=== PATIENT | female | born 1995 | race Caucasian/White ===

== ENCOUNTER → 2018-06-16 09:42 | Outpatient (CLI) | payer OTHER, SELFPAY ==
[2018-06-19 11:16] LABS: Mumps Antibody,IgG > 300.0 AU/mL (Immune >10.9); Rubeola IgG Ab < 25.0 AU/mL (Immune >29.9); V-Zoster IgG (Immunity) < 135 index (Immune >165)
== END ==
PROVIDERS: Visit Provider Family Medicine
DX: Z91.89 Other specified personal risk factors, not elsewhere classified (principal); Z00.00 Encounter for general adult medical examination without abnormal findings
CPT/HCPCS: 36415; 86735; 86762; 86765; 86787

== ENCOUNTER → 2019-06-12 15:25 | Outpatient (CLI) | payer OTHER, SELFPAY ==
[2019-06-12 15:18] VITALS: BMI 28.5
[2019-06-12 15:45] LABS: Absolute Lymphocyte Count 2.34 X10^3/uL (0.83-4.51); Absolute Neutrophil Count 7.3 X10^3/uL (2.0-7.7); Basophil# 0.03 X10^3/uL; Basophil% 0.3 % (0-1); Eosinophil# 0.06 X10^3/uL; Eosinophils% 0.6 % (0-5); Hematocrit 37.3 % (37-47); Hemoglobin 13.1 g/dL (12.0-15.0); Lymphocyte # 2.34 X10^3/ul (4.0); Lymphocyte % 22.2 % (19-41); Mean Corp Hgb Conc 35.1 g/dL (32-36); Mean Corpuscular Volume 88.2 fL (81-99); Mean Platelet Vol. 10.3 fl (6.2-12.0); Monocyte# 0.81 X10^3/uL; Monocyte% 7.7 % (0-10); NRBC Flagged by Analyzer 0 % (0-5); Neutrophil # 7.25 X10^3/uL (2.7-7.7); Neutrophil % 68.8 % (47-70); Platelet Count 250 K/mm3 (150-450); RBC Distribution Width CV 12.8 % (11.6-14.6); RBC Distribution Width SD 41.3 fl (35.1-43.9); Red Blood Count 4.23 M/mm3 (4.2-5.4); White Blood Count 10.5 K/mm3 (4.4-11.0)
[2019-06-12 17:09] LABS: HIV - WCH Non-Reactive (Nonreactive); Rubella IgG > 500.0 IU/mL
[2019-06-12 20:17] LABS: Chlamydia Trachomatis by PCR Negative (Negative); Neisserai gonorrhoeae by PCR Negative (Negative); Probe Check PASS; Sample Adequacy Control PASS; Specimen Processing Control PASS
[2019-06-14 16:07] LABS: Hemoglobin Fraction A 97.5 % (96.4-98.8); Hemoglobin Fraction A2 2.5 % (1.8-3.2); Hemoglobin Fraction C 0 % (0.0); Hemoglobin Fraction F 0 % (0.0-2.0); Hemoglobin Fraction S 0 % (0.0); Hemoglobin Solubility,Panel Negative (Negative)
[2019-06-15 00:54] LABS: Rapid Plasmin Reagin (RPR) NONREACTIVE (NONREACTIVE)
[2019-06-15 14:33] LABS: HPV Reflexed? NOT INDICATED
== END ==
PROVIDERS: Family Provider Family Medicine; PCP Family Medicine; Referring Provider Obstetrics & Gynecology; Visit Provider Obstetrics & Gynecology
DX: O99.119 Other diseases of the blood and blood-forming organs and certain disorders involving the immune mechanism complicating pregnancy, unspecified trimester (principal); D56.3 Thalassemia minor; Z3A.00 Weeks of gestation of pregnancy not specified; Z12.4 Encounter for screening for malignant neoplasm of cervix
CPT/HCPCS: 36415; 83021; 85025; 85660; 86592; 86703; 86762; 86850; 86900; 86901; 87086; 87088; 87491; 87591; 87624; 88175; G0145

== ENCOUNTER → 2019-06-25 15:28 | Outpatient (CLI) | payer OTHER, SELFPAY ==
[2019-06-20 16:00] VITALS: BMI 25.0
== END ==
PROVIDERS: Family Provider Family Medicine; PCP Family Medicine; Referring Provider Obstetrics & Gynecology; Visit Provider Obstetrics & Gynecology
DX: Z34.81 Encounter for supervision of other normal pregnancy, first trimester (principal)

== ENCOUNTER → 2019-08-07 09:53 | Outpatient (CLI) | payer OTHER, SELFPAY ==
[2019-08-07 09:42] VITALS: BMI 27.7
[2019-08-07 10:24] LABS: Absolute Lymphocyte Count 1.43 X10^3/uL (0.83-4.51); Absolute Neutrophil Count 7.6 X10^3/uL (2.0-7.7); Basophil# 0.02 X10^3/uL; Basophil% 0.2 % (0-1); Hematocrit 35.5 % (37-47); Hemoglobin 12.2 g/dL (12.0-15.0); Lymphocyte # 1.43 X10^3/ul (4.0); Lymphocyte % 14.5 % (19-41); Mean Corp Hgb Conc 34.4 g/dL (32-36); Mean Corpuscular Hgb 30.7 pg (27.0-32.0); Mean Corpuscular Volume 89.2 fL (81-99); Mean Platelet Vol. 10.5 fl (6.2-12.0); Monocyte# 0.75 X10^3/uL; Monocyte% 7.6 % (0-10); NRBC Flagged by Analyzer 0 % (0-5); Neutrophil # 7.55 X10^3/uL (2.7-7.7); Neutrophil % 76.3 % (47-70); Platelet Count 206 K/mm3 (150-450); RBC Distribution Width CV 13.1 % (11.6-14.6); RBC Distribution Width SD 42.9 fl (35.1-43.9); Red Blood Count 3.98 M/mm3 (4.2-5.4); White Blood Count 9.9 K/mm3 (4.4-11.0)
[2019-08-07 10:41] LABS: ALB/GLOB Ratio 0.9 RATIO (0.9-2.4); AST(SGOT) 11 U/L (15-37); Alanine Aminotransfer ALT/SGPT 16 U/L (13-56); Albumin, Serum 3.1 g/dL (3.2-5.0); Alkaline Phosphatase 55 U/L (45-117); Anion Gap 6 (5-15); BUN 5 mg/dL (7-18); BUN/Creat Ratio 8.8 RATIO (10-20); Chloride 108 mmol/L (98-107); Creatinine, Serum 0.57 mg/dL (0.55-1.02); EST Glomerular Filtration Rate 139 mL/min (>60); Est Glom Filt Rate - Afr Amer 169 mL/min (>60); Globulin 3.6 g/dL (2.2-4.2); Glucose 76 mg/dL (74-106); Potassium 3.6 mmol/L (3.5-5.1); Protein, Total 6.7 g/dL (6.4-8.2); Sodium Level 138 mmol/L (136-145)
[2019-08-07 11:13] LABS: Creatinine, Urine (random) < 13.00 mg/dL (NO RANGE EST.); Protein, Urine (Random) < 6.0 mg/dL (<11.9)
== END ==
PROVIDERS: Family Provider Family Medicine; PCP Family Medicine; Referring Provider Nurse Practitioner Women's Health; Visit Provider Nurse Practitioner Women's Health
DX: O12.12 Gestational proteinuria, second trimester (principal); Z3A.00 Weeks of gestation of pregnancy not specified
CPT/HCPCS: 36415; 80053; 82570; 84156; 85025

== ENCOUNTER → 2019-10-26 12:09 | Outpatient (CLI) | payer OTHER, SELFPAY ==
[2019-10-05 14:56] VITALS: BMI 27.7
[2019-10-26 13:07] LABS: Absolute Lymphocyte Count 1.72 X10^3/uL (0.83-4.51); Absolute Neutrophil Count 7.8 X10^3/uL (2.0-7.7); Basophil# 0.03 X10^3/uL; Basophil% 0.3 % (0-1); Hematocrit 33.9 % (37-47); Hemoglobin 11.2 g/dL (12.0-15.0); Lymphocyte # 1.72 X10^3/ul (4.0); Lymphocyte % 16.5 % (19-41); Mean Corpuscular Hgb 29.8 pg (27.0-32.0); Mean Corpuscular Volume 90.2 fL (81-99); Mean Platelet Vol. 11.4 fl (6.2-12.0); Monocyte# 0.71 X10^3/uL; Monocyte% 6.8 % (0-10); NRBC Flagged by Analyzer 0 % (0-5); Neutrophil % 74.9 % (47-70); Platelet Count 216 K/mm3 (150-450); RBC Distribution Width CV 12.8 % (11.6-14.6); RBC Distribution Width SD 42.3 fl (35.1-43.9); Red Blood Count 3.76 M/mm3 (4.2-5.4); White Blood Count 10.4 K/mm3 (4.4-11.0)
[2019-10-26 13:31] LABS: Glucose Challenge Gest 1H 50g 106 mg/dL (70-140)
== END ==
PROVIDERS: Family Provider Family Medicine; PCP Family Medicine; Referring Provider Nurse Practitioner Women's Health; Visit Provider Nurse Practitioner Women's Health
DX: Z34.90 Encounter for supervision of normal pregnancy, unspecified, unspecified trimester (principal)
CPT/HCPCS: 36415; 82950; 85025

== ENCOUNTER → 2019-10-30 15:22 | Outpatient (CLI) | payer OTHER, SELFPAY ==
[2019-10-05 14:56] VITALS: BMI 27.7
[2019-11-02 09:51] LABS: V-Zoster IgG (Immunity) < 135 index (Immune >165)
== END ==
LOC: LABSPEC 15:23 → LAB 16:46
PROVIDERS: Family Provider Family Medicine; PCP Family Medicine; Referring Provider Nurse Practitioner Women's Health; Visit Provider Nurse Practitioner Women's Health
DX: Z20.820 Contact with and (suspected) exposure to varicella (principal)
CPT/HCPCS: 36415; 86787

== ENCOUNTER → 2019-11-23 | Outpatient (CLI) | payer OTHER, SELFPAY ==
[2019-11-23 12:09] VITALS: BMI 27.7
== END | disposition home or self-care (01) ==
LOC: LABSPEC 13:40
PROVIDERS: PCP Family Medicine; Referring Provider Obstetrics & Gynecology; Visit Provider Obstetrics & Gynecology
DX: D56.3 Thalassemia minor (principal)
CPT/HCPCS: 87086; 87088

== ENCOUNTER → 2019-11-27 12:24 | Outpatient (CLI) | payer OTHER, SELFPAY ==
[2019-11-23 12:09] VITALS: BMI 27.7
[2019-11-27 14:29] LABS: Hepatitis B Surface Antigen Non-Reactive (Nonreactive)
== END ==
PROVIDERS: PCP Family Medicine; Referring Provider Nurse Practitioner Women's Health; Visit Provider Nurse Practitioner Women's Health
DX: Z34.90 Encounter for supervision of normal pregnancy, unspecified, unspecified trimester (principal)
CPT/HCPCS: 36415; 87340

== ENCOUNTER → 2019-12-28 | Outpatient (CLI) | payer OTHER, SELFPAY ==
[2019-12-28 11:09] VITALS: BMI 27.7
== END | disposition home or self-care (01) ==
LOC: LABSPEC 17:54
PROVIDERS: PCP Family Medicine; Visit Provider Obstetrics & Gynecology
DX: Z34.93 Encounter for supervision of normal pregnancy, unspecified, third trimester (principal)
CPT/HCPCS: 87081

== ENCOUNTER 2020-01-14 11:50 | Inpatient (IN) | payer OTHER, SELFPAY ==
[2019-12-07 11:37] VITALS: BMI 27.7
[2020-01-11 10:54] VITALS: BMI 27.7
[2020-01-14] VITALS (48 sets, daily range): BP systolic 115–137; BP diastolic 57–75; PULSE 66–102; TEMP 36.9–37.5; O2SAT 88–100; BMI 31.8
[2020-01-14 11:47] LABS: ROM Internal Control Test YES-OK TO RESULT pt. (Internal QC)
[2020-01-14 11:48] LABS: ROM Patient Test POSITIVE (Negative)
[2020-01-14] MEDS: Lactated Ringers 1,000 ML 50 ML IV (12:15)
[2020-01-14 12:42] LABS: Absolute Lymphocyte Count 1.83 X10^3/uL (0.83-4.51); Absolute Neutrophil Count 7.3 X10^3/uL (2.0-7.7); Basophil# 0.02 X10^3/uL; Basophil% 0.2 % (0-1); Eosinophil# 0.07 X10^3/uL; Eosinophils% 0.7 % (0-5); Hematocrit 33.9 % (37-47); Hemoglobin 10.8 g/dL (12.0-15.0); Lymphocyte # 1.83 X10^3/ul (4.0); Lymphocyte % 18.2 % (19-41); Mean Corp Hgb Conc 31.9 g/dL (32-36); Mean Corpuscular Hgb 27.1 pg (27.0-32.0); Mean Corpuscular Volume 85.2 fL (81-99); Mean Platelet Vol. 12.5 fl (6.2-12.0); Monocyte# 0.81 X10^3/uL; NRBC Flagged by Analyzer 0 % (0-5); Neutrophil # 7.28 X10^3/uL (2.7-7.7); Neutrophil % 72.3 % (47-70); Platelet Count 178 K/mm3 (150-450); RBC Distribution Width CV 13.3 % (11.6-14.6); RBC Distribution Width SD 41.1 fl (35.1-43.9); Red Blood Count 3.98 M/mm3 (4.2-5.4); White Blood Count 10.1 K/mm3 (4.4-11.0)
[2020-01-14] MEDS: Oxytocin 30 units/NS 500 ml 30 UNITS/500 ML IV.SOLN IV (13:50)
--- NOTE | 2020-01-14 16:41 | HP.PCM_ITS ---
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 AFP negative. Anatomy normal. Needs varicella vaccine PP (may be nonimmune). History Date of Admission: 01/14/20 Final ODETTE: 01/21/20 Gestational age: 39 Weeks and 0 Days History of this : This is a 24 year-old, , at 39 weeks gestational age presents clear spontaneous rupture of membranes. She denies any regular contractions and admits good movement. She has had an uncomplicated .. Medical History: Medical History (Last Reviewed 01/11/20 @ 10:54 by Susan Mitchell) Asthma J45.909 Thalassemia carrier D56.3 White coat syndrome with diagnosis of hypertension I10 Surgical History: Surgical History (Last Reviewed 01/11/20 @ 10:54 by Susan Mitchell) H/O wisdom tooth extraction K08.409 Allergies No Known Allergies Allergy (Verified 01/11/20 10:53) Home Medications: Home Medications Albuterol Inhaler [Ventolin Hfa] 90 mcg PO PRN PRN 02/04/16 pyridoxine (vitamin B6) 25 mg tablet 25 mg PO DAILY 06/12/19 [PNV OB+DHA] See Rx Instructions PO .COMPLEX 01/14/20 Sertraline HCl [Zoloft] 100 mg PO DAILY 01/14/20 Smoking Status: Never smoker Alcohol: None Number of Fetus(es): 1 NST - FHR Rate Baby A Baseline: 130 Variability:: Moderate Accelerations:: 15 x 15 Decelerations:: None NST Reactive:: Yes FHR Category:: Category I Uterine Activity:: no regular History Past Pregnancies: Past Pregnancies Delivery Date Name GA/ Weeks Outcome Route Wt Infant Sex Labor Length Anesthesia Delivery Location Provider FOB Labs: Mom's Labs & Results 01/14/20 01/14/20 01/14/20 11:30 12:15 12:15 WBC 10.1 RBC 3.98 L Hgb 10.8 L Hct 33.9 L MCV 85.2 MCH 27.1 MCHC 31.9 L RDW Std Deviation 41.1 RDW Coeff of Maikel 13.3 Plt Count 178 MPV 12.5 H Immature Gran % (Auto) 0.600 Neut % (Auto) 72.3 H Lymph % (Auto) 18.2 L Harmon % (Auto) 8.0 Eos % (Auto) 0.7 Baso % (Auto) 0.2 Absolute Neuts (auto) 7.3 Absolute Lymphs (auto) 1.83 Nucleated RBC % 0 Vag Amniotic Fld Detect POSITIVE H Blood Type A POSITIVE Antibody Screen NEGATIVE Course Did the patient receive Yes care? Labs Blood Type: A RH: POSITIVE RPR/VDRL/Syphilis Nonreactive Rubella status Immune HbSAg Negative Date Done: 11/27/19 Chlamydia Negative Gonorrhea Negative HIV/AIDS Non-Reactive Group B Strep: Negative Current Obstetrical History Gestational Diabetes No Incompetent Cervix No Infertility No IUGR No Macrosomia No Hypertension/Pre-eclampsia No Placenta Previa/Abruption No PTL/PROM No Uterine anomaly No Oligohydramnios No Polyhydramnios No Multiple gestation No Past Medical History Asthma Yes Diabetes No Hypertension No Heart disease No Mitral valve prolapse No Neurologic/Seizure disorder/ No Migraines Kidney disease No Liver disease No Varicosities No Clotting disorders/Hx of DVT No Thyroid Dysfunction No Other medical diseases No Psychiatric disorders Yes: Anxiety Major trauma No Abnormal PAP smear No Sleep apnea No Mammogram in the last 2 years No Social History Marital Status: Alleged father Heladio Hx Smoking No Smoking Status Never smoker Expected Delivery Method: Spontaneous Vaginal Review of Systems Constitutional: Denies: Fever, Malaise Eyes: Denies: Blurred vision, Vision Change HEENT: Denies: Head Aches, Visual Changes Cardiovascular: Denies: Chest Pain, Palpitations Respiratory: Denies: Cough, Shortness of Breath, Wheezing Gastrointestinal: Denies: Abdominal Pain, Diarrhea, Nausea, Vomiting Genitourinary: Denies: Dysuria, Hematuria Musculoskeletal: Denies: Joint Pain, Muscle pain Skin: Denies: Lesions, Rash Neurological: Denies: Blurred vision, Focal weakness, Headaches Psychiatric: Denies: Anxiety, Depression Endocrine: Denies: Heat/ Cold Intolerance Hematologic/ Lymphatic: Denies: Easy Bruising, Easy Bleeding Physical Exam Vitals: Vital Signs Temp Pulse BP Pulse Ox 98.7 F 75 130/73 H 97 01/14/20 16:30 01/14/20 16:30 01/14/20 16:29 01/14/20 16:30 General: Alert, Cooperative, No apparent distress HEENT: Atraumatic, Normocephalic. Negative for: Thyromegaly, Lymphadenopathy Cardiovascular: Regular rate Lungs: Normal air movement Abdomen: Soft, Non Tender, Gravid Neurological: Deep Tendon Reflexes 2+/4 and Symmetrical, Neuro grossly intact. 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 Negative for: Vulvar lesions Estimated gestational size: Appropriate for gestational size Presentation: Cephalic Cervix Dilation (cm): 2 Assessment/Plan All Active Problems (Last Reviewed 01/11/20 @ 10:54 by Susan Mitchell) Anxiety (Acute) White coat syndrome with high blood pressure but without hypertension (Acute) Thalassemia carrier (Acute) Supervision of normal (Acute) (Acute) This is a 24 year-old, , at 39 weeks gestational age presents with PROM. Patient presents with PROM, plan IOL, plan management for , pitocin Pain management: Plans epidural. GBS negative. Management of any complications: None I have reviewed the [facility] and made any clinically relevant updates.
[2020-01-14] MEDS: Lactated Ringers 500 ML 999 ML IV (18:54)
[2020-01-14] MEDS: fentaNYL-bupivacaine (epidural) 100 ML BAG EPIDURAL ×2 (19:30→23:38)
[2020-01-14] MEDS: Lactated Ringers 1,000 ML 200 ML IV (22:40)
[2020-01-14] MEDS: Acetaminophen 325 MG Tablet PO (23:57)
[2020-01-15] VITALS (21 sets, daily range): BP systolic 110–132; BP diastolic 55–74; PULSE 66–104; RESP 16; TEMP 36.8–37.8; O2SAT 97–99
[2020-01-15] MEDS: Lactated Ringers 500 ML 999 ML IV ×2 (00:23→03:07)
[2020-01-15] MEDS: Ondansetron 4 MG/2 ML Vial IV (03:34)
[2020-01-15] MEDS: fentaNYL-bupivacaine (epidural) 100 ML BAG EPIDURAL (05:10)
--- NOTE | 2020-01-15 05:10 | PCM.PN.BLA ---
Progress Note fht 150 moderate variability reactive early decels. 9 cm. sitting up and laboring down STROKE Vital Signs/Narrative: Vital Signs Temp Pulse BP Pulse Ox 01/15/20 04:29 100.0 F H 76 119/55 L 01/15/20 02:50 98.8 F 75 115/56 L 01/15/20 01:48 99.0 F 01/15/20 01:47 77 122/70 H 99
--- NOTE | 2020-01-15 06:37 | OP.PCM_ITS ---
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 AFP negative. Anatomy normal. Needs varicella vaccine PP (may be nonimmune). Vaginal Delivery Maternal Presentation: Active Labor, Spontaneous Rupture of Membranes 24 yo @ 39 weeks presents with SROM x 10 hours with no signfiicant contractions. 2 cm dilated. Method of Induction: Pitocin Final ODETTE: 01/21/20 Gestational age: 39 Weeks and 1 Days Date of Procedure: 01/15/20 Pre-Operative Diagnosis: prom Post-Operative Diagnosis: same Surgery/ Procedure Performed: Vacuum Assisted Vaginal Delivery Type of Anesthesia: Epidural Description of Procedure: Patient began pushing and after an hour of pushing she developed a bradycardia down into the 60s to 70s with recurrent variables therefore the decision was made to apply vacuum for delivery. Patient began pushing vacuum was applied and she pushed with 2 contractions with no pop offs 2 pulls a total of 4 minutes of duration and delivered the head in the [MAXINE] presentation. The head was delivered atraumatically [and a loose nuchal cord ?1 was identified and easily reduced over the infant's head]. The anterior and posterior shoulders delivered without complication followed by the rest of the infant and the was placed on the maternal abdomen. Delayed cord clamping was employed for approximately 60 seconds. Cord was clamped and cut and gentle traction was applied to the cord and the placenta delivered spontaneously immediately following it was noted to be intact with three-vessel cord. The perineum and vagina were inspected and noted to have a second-degree perineal laceration that was repaired in the usual fashion with 3-0 Vicryl Rapide. EBL was 300 cc. Patient and infant tolerated delivery well. Presentation: MAXINE Placental Delivery Description: Spontaneous Placenta Disposition: [facility] Cord Vessel Description: 3 Vessels Cord Entanglement: Around neck x 1, loose Estimated Blood Loss: 300 A gender: Female (1 minute): 7 (5 minute): 9 Episiotomy Description: None Laceration: Perineal Extension/lac, 2nd degree Medications given after delivery: IV Pitocin Complications: None Multi Select Codes - Urinary/Genital Urinary/Genital CPT Codes: 64651 Vaginal Delivery [facility]
[2020-01-15] MEDS: Lactated Ringers 1,000 ML 200 ML IV (06:42)
[2020-01-15] MEDS: Oxytocin 30 units/NS 500 ml 30 UNITS/500 ML IV.SOLN 334 UNITS IV (07:03)
[2020-01-15] MEDS: Sertraline 100 MG Tablet PO (09:50)
[2020-01-15] MEDS: Acetaminophen 500 MG Tablet 1000 MG PO (18:16)
[2020-01-16 00:30] VITALS: BP 116/56; PULSE 71; RESP 16; TEMP 36.8; O2SAT 97
[2020-01-16 04:40] VITALS: BP 109/55; PULSE 66; RESP 17; TEMP 37.1; O2SAT 98
[2020-01-16] MEDS: Acetaminophen 500 MG Tablet 1000 MG PO (05:06)
--- NOTE | 2020-01-16 07:42 | PCM.PN.OB ---
Subjective: Doing well, no complaints.Pain controlled. Denies CP, SOB, N,V. Ambulating well, tolerating po. Lochia moderate, going well. - Physical Exam Vitals/I&O's: Vital Signs Temp Pulse Resp BP Pulse Ox 98.7 F 66 17 109/55 L 98 01/16/20 04:40 01/16/20 04:40 01/16/20 04:40 01/16/20 04:40 01/16/20 04:40 Oxygen Delivery Method Room Air Weight: 197 lb Body Mass Index (BMI) 31.8 Intake and Output for Last 24 Hours 01/14/20 01/15/20 01/16/20 23:59 23:59 23:59 Intake Total 2576.27 / 2576.27 3663.04 / 3663.04 Output Total 660 / 660 2049 / 2049 Balance 1916.27 / 1916.27 1613.04 / 1613.04 General: Alert, Oriented x3 Abdomen: Soft, Non Tender, - - FF below U Current Medications Acetaminophen (Tylenol) 1,000 mg PO Q8H PRN PRN PRN Reason: Pain Score 1-3/10 Last Admin: 01/16/20 05:06 Dose: 1,000 mg Documented by: Bisacodyl (Dulcolax) 10 mg RECTAL UD PRN PRN Reason: If no BM Dibucaine (Dibucaine) 1 applic TOPICAL TID PRN PRN; Protocol PRN Reason: Discomfort Hydrocortisone (Hytone) 1 applic TOPICAL TID PRN PRN; Protocol PRN Reason: Discomfort Methylergonovine Maleate (Methergine) 0.2 mg IM X1 PRN PRN Reason: Excess bleeding/uterine atony Naproxen (Naprosyn) 500 mg PO Q8H PRN PRN PRN Reason: Pain Score 1-3/10 Ondansetron HCl (Zofran) 4 mg IV Q4H PRN PRN PRN Reason: Nausea Oxycodone HCl (Oxyir) 5 - 10 mg PO Q4H PRN PRN PRN Reason: Pain Score 4-10/10 Senna/Docusate Sodium (Senokot-S, Becca-Colace) 1 - 2 tablet PO DAILY PRN PRN PRN Reason: Constipation Sertraline HCl (Zoloft) 100 mg PO DAILY TYRONE Last Admin: 01/15/20 09:50 Dose: 100 mg Documented by: Simethicone (Mylicon) 80 mg PO PCHS PRN PRN Reason: Indigestion/Stomach pain Sodium Chloride () 5 - 15 ml IV UD PRN PRN Reason: SALINE FLUSH Medical Necessity - Tobacco Use Smoking Status: Never smoker Assessment/Plan All Active Problems (Last Reviewed 01/11/20 @ 10:54 by Susan Mitchell) Maternal varicella, non-immune (Acute) Anxiety (Acute) White coat syndrome with high blood pressure but without hypertension (Acute) Thalassemia carrier (Acute) Supervision of normal (Acute) (Acute) s/p PPD # 1 1. routine post delivery care 2. breast feeding- support given 3. rh positive 4. rubella immune 5. enc varicella vaccine 6. home today
--- NOTE | 2020-01-16 07:44 | DCINST_ITS ---
Additional Instructions: If you experience any of the following, contact your healthcare provider. * Bleeding that soaks a pad every hour for 2 hours * Fever 100.4 or higher * Unrelieved incision or abdominal pain * Swelling, redness, discharge or bleeding from your incision or episiotomy site * Your incision begins to separate * Problems urinating (including inability to urinate or burning while urinating). * Visual changes * Severe headache * Flu-like symptoms * Pain or redness in one of both of your breasts * Pain, warmth, tenderness or swelling in your legs, especially the calf area * Frequent nausea and vomiting * Symptoms of depression or anxiety If you experience any of the following, call 911 or go to the nearest Emergency Room. * Chest pain * Problems breathing * Seizure activity * Partial or complete paralysis of a body part, slurred speech, weakness or drooping of the face, or a sudden inability to walk or hold your balance Allergies/Adverse Reactions: Allergies No Known Allergies Allergy (Verified 01/11/20 10:53) Medications to take at Discharge Albuterol Inhaler [Ventolin Hfa] 90 mcg PO PRN PRN 02/04/16 pyridoxine (vitamin B6) 25 mg tablet 25 mg PO DAILY 06/12/19 [PNV OB+DHA] See Rx Instructions PO .COMPLEX 01/14/20 Sertraline HCl [Zoloft] 100 mg PO DAILY 01/14/20 Primary Care Physician: Marty Christensen DO [Primary Care Provider] - Test Results: Test results from this visit will be discussed in further detail at your follow- up appointment, if applicable.
--- NOTE | 2020-01-16 07:44 | PCM.DCVAG ---
Additional Instructions: If you experience any of the following, contact your healthcare provider. Bleeding that soaks a pad every hour for 2 hours Fever 100.4 or higher Unrelieved incision or abdominal pain Swelling, redness, discharge or bleeding from your incision or episiotomy site Your incision begins to separate Problems urinating (including inability to urinate or burning while urinating). Visual changes Severe headache Flu-like symptoms Pain or redness in one of both of your breasts Pain, warmth, tenderness or swelling in your legs, especially the calf area Frequent nausea and vomiting Symptoms of depression or anxiety If you experience any of the following, call 911 or go to the nearest Emergency Room. Chest pain Problems breathing Seizure activity Partial or complete paralysis of a body part, slurred speech, weakness or drooping of the face, or a sudden inability to walk or hold your balance Allergies/Adverse Reactions: Allergies No Known Allergies Allergy (Verified 01/11/20 10:53) Medications to take at Discharge Albuterol Inhaler [Ventolin Hfa] 90 mcg PO PRN PRN 02/04/16 pyridoxine (vitamin B6) 25 mg tablet 25 mg PO DAILY 06/12/19 [PNV OB+DHA] See Rx Instructions PO .COMPLEX 01/14/20 Sertraline HCl [Zoloft] 100 mg PO DAILY 01/14/20 Primary Care Physician: Marty Christensen DO [Primary Care Provider] - Test Results: Test results from this visit will be discussed in further detail at your follow-up appointment, if applicable.
[2020-01-16 08:00] VITALS: BP 110/60; PULSE 66; RESP 16; TEMP 36.4
[2020-01-16] MEDS: Senna/Docusate Sodium 1 Tablet PO (09:14)
[2020-01-16] MEDS: Sertraline 100 MG Tablet PO (09:14)
[2020-01-16 13:56] VITALS: BP 126/50; PULSE 71; RESP 16; TEMP 36.8
== END 2020-01-16 14:50 | disposition home or self-care (01) | DRG 805 ==
LOC: OBT 11:56 → WP 11:57
PROVIDERS: Admitting Provider Obstetrics & Gynecology; PCP Family Medicine; Referring Provider Obstetrics & Gynecology; Visit Provider Obstetrics & Gynecology
DX: O76 Abnormality in fetal heart rate and rhythm complicating labor and delivery (principal); O99.42 Diseases of the circulatory system complicating childbirth; Z37.0 Single live birth; R03.0 Elevated blood-pressure reading, without diagnosis of hypertension; O42.02 Full-term premature rupture of membranes, onset of labor within 24 hours of rupture; O69.81X0 Labor and delivery complicated by cord around neck, without compression, not applicable or unspecified; O70.1 Second degree perineal laceration during delivery; O99.89 Other specified diseases and conditions complicating pregnancy, childbirth and the puerperium; R00.1 Bradycardia, unspecified; O99.344 Other mental disorders complicating childbirth; F41.9 Anxiety disorder, unspecified; Z14.8 Genetic carrier of other disease; Z3A.39 39 weeks gestation of pregnancy
CPT/HCPCS: 59025; 59050; 84112; 85025; 86850; 86900; 86901; 99218; J7120; G0378; J2405

== ENCOUNTER → 2020-12-23 14:10 | Outpatient (CLI) | payer OTHER, SELFPAY ==
[2020-02-28 14:40] VITALS: BMI 31.8
[2020-12-24 08:41] LABS: SARS-COV-2 TOTAL ABS Reactive (Nonreactive)
== END ==
PROVIDERS: PCP Family Medicine; Visit Provider Family Medicine
DX: U07.1 COVID-19 (principal)
CPT/HCPCS: 36415; 86769

== ENCOUNTER 2021-11-17 07:05 | Inpatient (IN) | payer OTHER, SELFPAY ==
[2021-11-17] VITALS (38 sets, daily range): BP systolic 101–136; BP diastolic 54–82; PULSE 66–196; RESP 16; TEMP 36.4–37.6; O2SAT 90–100; BMI 34.8
--- NOTE | 2021-11-17 07:44 | HP.PCM.OB_ITS ---
HPI - General General Date of Admission: 11/17/21 HPI Narrative SARAH BAER, is a 26 F at 39.0 weeks gestation who presents for induction of labor for LGA. EFW 90% at 36 weeks gestation. Grady score 10. Maternal Data Information ODETTE Calculator Estimated Delivery Date Method Current WG Current Estimate 11/24/21 LMP (Certain) 39w 0d PFSH PFSH Medical History (Updated 11/17/21 @ 12:23 by Barby Weir CNM) Asthma Thalassemia carrier White coat syndrome with diagnosis of hypertension Home Medications albuterol sulfate 90 mcg PO PRN PRN 02/04/16 [History Last Taken Unknown] [id number] [PNV OB+DHA] See Rx Instructions PO .COMPLEX 01/14/20 [History Last Taken 11/17/21 06:00 1 tab] cetirizine [Zyrtec] 10 mg PO DAILY 11/17/21 [History Last Taken 11/17/21 06:00 1 tab] sertraline 100 mg PO DAILY 11/17/21 [History Last Taken 11/17/21 06:00 1 tab] Allergy/AdvReac Type Severity Reaction Status Date / Time No Known Allergies Allergy Verified 03/30/21 15:41 Family History (Updated 03/30/21 @ 15:45 by Lisa Matos NP, [employer] [facility] [facility]) Father Cancer oral cancer Mother No problems noted. 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 current occupation: [employer] current occupational exposures/hazards: No pets and animals: Yes history of recent travel: Yes out of country: Yes sexually active: Yes Smoking Status: Never smoker second hand exposure: Yes alcohol intake: current alcohol intake frequency: holidays/special occasions only details: not when substance use type: does not use seatbelt use: always do you feel safe at home: Yes 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 History 1 Elective abortions Hx Para 1 Spontaneous abortions Hx # Term Pregnancies Ectopic pregnancies Hx # Pregnancies Multiple births # of living children 1 Past Pregnancies Del. Date Name GA/Weeks Outcome Route Bth Weight Gen Labor Lgth Anesthesia Del Sarah Provider FOB 01/15/20 Stella 39 live - full term vacuum 7lbs .4oz Female epidural [facility]KO Heladio Delivery Date: 01/15/20 VAVD CAT 2 TRACING; 2 DEGREE LACERATION Noemi Avilezily NST FHR Rate Baby A Baseline: 135 Variability:: Moderate Accelerations:: 15 x 15 Decelerations:: None NST Reactive:: Yes FHR Category:: Category I Uterine Activity:: irritability ROS Eyes Eyes: Denies blurry vision, change in vision or spots in vision ENT HEENT: Denies dizziness or headache(s) Cardiovascular Cardiovascular: Denies abdominal pain, chest pain or dyspnea Respiratory/Chest Respiratory/Chest: Denies cough, dyspnea, shortness of breath at rest or shortness of breath with exertion Gastrointestinal Gastrointestinal: Denies abdominal pain, diarrhea or vomiting Genitourinary Genitourinary: Denies change in urinary stream, difficulty urinating or dysuria Musculoskeletal Musculoskeletal: Reports none Integumentary Integumentary: Denies rash Neurologic Neurologic: Denies dizziness, headache(s), memory loss or weakness Psychiatric Psychiatric: Reports none Physical Exam Const alert, oriented x3 and no apparent distress General Appearance: cooperative Orientation / Consciousness: awake Exam Limitations: no limitations HEENT normocephalic Head and Scalp: normal to inspection Eyes General Eye: normal appearance of both eyes Neck full ROM and no lymphadenopathy Lymph Lymphatic: no lymphadenopathy noted Chest inspection of chest normal Resp normal respiratory effort, normal air movement and clear to auscultation bilaterally Effort and Inspection: able to speak in complete sentences and symmetric chest movement Cardio regular rate and regular rhythm GI normal to inspection, nondistended, normoactive bowel sounds Manual OB Exam: dilated 3, effaced 70 and station -2 Back/Spine normal ROM Extremity full ROM and no calf tenderness Skin no rashes or lesions noted General Skin Exam: no breakdown Neuro oriented x3 and CN's II-XII intact bilaterally Psych mental status grossly normal and thought process normal Labs Labs Labs: Blood Type A POSITIVE Antibody Screen NEGATIVE Hct 34.1 % (37-47) L Hgb 10.8 g/dL (12.0-15.0) L Pap Smear Negative VZV IgG Antibody < 135 index (Immune >165) L Rubella IgG Antibody > 500.0 IU/mL Hep Bs Antigen Non-Reactive (Nonreactive) HIV 1&2 Antibody Non-Reactive (Nonreactive) C.trachomatis DNA (PCR) Negative (Negative) Glucose 1 Hr 50 gm 106 mg/dL (70-140) Rhogam given: No Miscellaneous Test Assessment & Plan (1) Thalassemia carrier: COMMENT: urine culture q trimester (2) 39 weeks gestation of : (3) Elective induction of labor planned: (4) LGA (large for gestational age) fetus: (5) History of vacuum extraction assisted delivery: PLAN: Admit to labor and delivery Routine labs GBS negative Start IV fluids and titrate per orders CE- 3.5/70/-2 Start Pitocin IV 2 mu/min and titrate per policy Anticipate AROM Epidural when indicated Dr. Arita updated and is collaborating physician
[2021-11-17] MEDS: Lactated Ringers 1,000 ML 50 ML IV (07:45)
[2021-11-17] MEDS: Oxytocin 30 units/NS 500 ml 30 UNITS/500 ML IV.SOLN IV (07:53)
[2021-11-17 08:07] LABS: Absolute Lymphocyte Count 1.44 X10^3/uL (0.83-4.51); Absolute Neutrophil Count 6.5 X10^3/uL (2.0-7.7); Basophil# 0.02 X10^3/uL; Basophil% 0.2 % (0-1); Eosinophil# 0.08 X10^3/uL; Eosinophils% 0.9 % (0-5); Hematocrit 34.1 % (37-47); Hemoglobin 10.8 g/dL (12.0-15.0); Lymphocyte # 1.44 X10^3/ul (0.83-4.51); Lymphocyte % 16.2 % (19-41); Mean Corp Hgb Conc 31.7 g/dL (32-36); Mean Corpuscular Hgb 26.7 pg (27.0-32.0); Mean Corpuscular Volume 84.2 fL (81-99); Mean Platelet Vol. 11.7 fl (6.2-12.0); NRBC Flagged by Analyzer 0 % (0-5); Neutrophil % 73.2 % (47-70); Platelet Count 164 K/mm3 (150-450); RBC Distribution Width SD 51.7 fl (35.1-43.9); Red Blood Count 4.05 M/mm3 (4.2-5.4); White Blood Count 8.9 K/mm3 (4.4-11.0)
--- NOTE | 2021-11-17 12:22 | PCM.PN.BLA ---
Progress Note Patient seen at bedside. Rates pain of contractions 4/10. Currently sitting on birthing ball. Physical Exam Const alert and no apparent distress General Appearance: cooperative and comfortable Exam Limitations: no limitations HEENT normocephalic Eyes General Eye: normal appearance of both eyes Neck full ROM General: normal visual inspection Chest Chest: symmetrical chest wall rise Resp normal respiratory effort and normal air movement Effort and Inspection: symmetric chest movement Auscultation: clear to auscultation bilaterally Cardio regular rate and regular rhythm GI normal to inspection, nondistended, normoactive bowel sounds Back/Spine normal ROM Extremity full ROM and no calf tenderness General Extremity: normal exam except as noted Skin no rashes or lesions noted Neuro CN's II-XII intact bilaterally Psych mental status grossly normal Assessment & Plan Assessment/Plan (1) Artificial rupture of membranes antepartum: (2) LGA (large for gestational age) fetus: (3) Elective induction of labor planned: (4) 39 weeks gestation of : (5) Meconium in amniotic fluid: PLAN: Cat. 1 tracing, NST reactive CE- 4/80/-1 AROM for small amount of meconium fluid IUPC placed without difficulty Pitocin IV 10 mu/min- continue to increase per protocol Epidural when indicated for pain Anticipate
[2021-11-17] MEDS: Lactated Ringers 500 ML 999 ML IV (13:43)
[2021-11-17] MEDS: fentaNYL-bupivacaine (epidural) 100 ML BAG EPIDURAL (14:30)
[2021-11-17] MEDS: Oxytocin 30 units/NS 500 ml 30 UNITS/500 ML IV.SOLN 334 UNITS IV (16:39)
[2021-11-17] MEDS: Methylergonovine 0.2 MG/ML Ampul IM (16:39)
--- NOTE | 2021-11-17 16:59 | OP.PCM_ITS ---
Assessment & Plan (1) Vaginal delivery: (2) Meconium in amniotic fluid: Maternal Data Information ODETTE Calculator Estimated Delivery Date Method Current WG Current Estimate 11/24/21 LMP (Certain) 39w 0d Vaginal Delivery Maternal Presentation Maternal Presentation: Elective Induction Maternal Presentation: Elective IOL 39 weeks with favorable cervix. Type of Induction: Pitocin and Amniotomy Operative Information Date of Procedure: 11/17/21 Pre-Operative Diagnosis: 39 weeks, Meconium Post-Operative Diagnosis: same, live male Surgery / Procedure Performed: Spontaneous Vaginal Delivery Type of Anesthesia: Epidural Drain: Perez to straight drain Estimated Blood Loss: 300 Time of Delivery: 16:36 Findings Description of Procedure: Previous assessment was that the patient was still 4- 1/2 cm and head was asynclitic with blood-tinged urine. At this time patient was electing for primary section. I was on my way to the hospital and got a phone call that OB ERT was called due to deceleration in the 50s. Upon my arrival patient was in the operating room and the heart rate was back into the 110s. At this time patient was found to be complete with a +1 station. At this time I discussed with the patient and the that a vaginal delivery is indicated at this time. Patient was still questioning whether primary section could be performed. I discussed with them increased risk in at this point I do not feel that is necessary. At this time patient was prepped and draped for vaginal delivery. Double set up was complete. At this time with good maternal pushing efforts the infant's head was delivered without difficulty. Loose nuchal was noted x1 this was reduced. Anterior shoulder was then delivered without complication with gentle downward traction. Once the was delivered the infant was placed on the mother's chest mouth and nose were suctioned. Meconium fluid was noted. The cord was clamped and cut and the infant was handed to the waiting nursery staff for [facility] evaluation. Pitocin was started. At this time the placenta was delivered without complication and intact. After delivery of the placenta brisk bleeding was noted. Fundus was firm. Methergine was given. Second-degree perineal laceration was appreciated. 2-0 Vicryl suture was used to reapproximate this in the usual fashion. Excellent hemostasis was appreciated patient tolerated this procedure well. Presentation: Vertex Amniotic Membrane Rupture Type: Artificial Amniotic Fluid Description: Moderate meconium Placental Delivery Description: Spontaneous Placenta Disposition: [facility] Specimen(s) Removed: Placenta Cord Vessel Description: 3 Vessels Cord Entanglement: Around neck x 1, loose Nuchal Cord Compression: With compression Cord Gases: ABG and VBG A Gender: Male (1 minute): 8 (5 minute): 8 Delayed Cord Clamping: Yes Post Vaginal Delivery Medications Given After Delivery: IV Pitocin and IM Methergin Episiotomy Description: None Laceration: Perineal Extension/lac and 2nd degree Complication Complications: None
[2021-11-17] MEDS: Acetaminophen 500 MG Tablet 1000 MG PO (18:55)
[2021-11-17] MEDS: Ibuprofen 600 MG Tablet PO (22:33)
[2021-11-18 00:25] VITALS: BP 104/51; PULSE 73; RESP 15; TEMP 36.9
[2021-11-18] MEDS: Acetaminophen 500 MG Tablet 1000 MG PO (03:10)
[2021-11-18 03:11] VITALS: BP 119/67; PULSE 85; RESP 18; TEMP 36.8; O2SAT 96
[2021-11-18] MEDS: Senna/Docusate Sodium 1 Tablet PO ×2 (03:11→09:55)
[2021-11-18 06:04] LABS: Hematocrit 29.9 % (37-47); Hemoglobin 9.5 g/dL (12.0-15.0); Mean Corp Hgb Conc 31.8 g/dL (32-36); Mean Corpuscular Hgb 27.1 pg (27.0-32.0); Mean Corpuscular Volume 85.4 fL (81-99); Platelet Count 131 K/mm3 (150-450); RBC Distribution Width CV 17.2 % (11.6-14.6); RBC Distribution Width SD 53.4 fl (35.1-43.9); White Blood Count 9.6 K/mm3 (4.4-11.0)
--- NOTE | 2021-11-18 06:41 | NURSING ---
All charting by SN Alexa reviewed by this RN.
--- NOTE | 2021-11-18 06:59 | PN.OBGYN_ITS ---
Subjective Subjective Patient seen at bedside. Feeling good. without difficulty. Ambulating and voiding without difficulty. Denies any headache, dizziness, SOB or CP. Unsure if desires discharge home later or tomorrow. Objective Data Objective Data Vital Signs: Vital Signs Temp Pulse Resp BP Pulse Ox 98.2 F 85 18 119/67 96 11/18/21 03:11 11/18/21 03:11 11/18/21 03:11 11/18/21 03:11 11/18/21 03:11 Oxygen Delivery Method Room Air Weight: 216 lb 0.848 oz Body Mass Index (BMI) 34.8 Intake & Output: Intake and Output for Last 24 Hours 11/16/21 11/17/21 11/18/21 23:59 23:59 23:59 Intake Total 1802.02 / 1802.02 Output Total 1000 / 1000 Balance 802.02 / 802.02 Lab / Micro Data Result Diagrams: 11/18/21 05:55 Labs: Laboratory Results - last 24 hr 11/17/21 07:45: WBC 8.9, RBC 4.05 L, Hgb 10.8 L, Hct 34.1 L, MCV 84.2, MCH 26.7 L, MCHC 31.7 L, RDW Std Deviation 51.7 H, RDW Coeff of Maikel 17.0 H, Plt Count 164, MPV 11.7, Immature Gran % (Auto) 0.500, Neut % (Auto) 73.2 H, Lymph % (Auto) 16.2 L, Kenton % (Auto) 9.0, Eos % (Auto) 0.9, Baso % (Auto) 0.2, Absolute Neuts (auto) 6.5, Absolute Lymphs (auto) 1.44, Nucleated RBC % 0 11/17/21 07:45: Blood Type A POSITIVE, Antibody Screen NEGATIVE 11/18/21 05:55: WBC 9.6, RBC 3.50 L, Hgb 9.5 L, Hct 29.9 L, MCV 85.4, MCH 27.1, MCHC 31.8 L, RDW Std Deviation 53.4 H, RDW Coeff of Maikel 17.2 H, Plt Count 131 L, MPV 11.0 ROS Eyes Eyes: Denies blurry vision, change in vision or spots in vision ENT HEENT: Denies dizziness or headache(s) Cardiovascular Cardiovascular: Denies abdominal pain, chest pain or dyspnea Respiratory/Chest Respiratory/Chest: Denies cough, dyspnea, shortness of breath at rest or shortness of breath with exertion Gastrointestinal Gastrointestinal: Denies abdominal pain, diarrhea or vomiting Genitourinary Genitourinary: Denies change in urinary stream, difficulty urinating or dysuria Musculoskeletal Musculoskeletal: Reports none Integumentary Integumentary: Denies rash Neurologic Neurologic: Denies dizziness, headache(s), memory loss or weakness Physical Exam Const alert and no apparent distress General Appearance: cooperative and comfortable Exam Limitations: no limitations HEENT normocephalic Eyes General Eye: normal appearance of both eyes Neck full ROM General: normal visual inspection Chest Chest: symmetrical chest wall rise Resp normal respiratory effort and normal air movement Effort and Inspection: symmetric chest movement Auscultation: clear to auscultation bilaterally Cardio regular rate and regular rhythm GI normal to inspection, nondistended, normoactive bowel sounds Back/Spine normal ROM Extremity full ROM and no calf tenderness General Extremity: normal exam except as noted Skin no rashes or lesions noted Neuro CN's II-XII intact bilaterally Psych mental status grossly normal Assessment & Plan (1) Vaginal delivery: (2) Care and examination of lactating mother: (3) Laceration, obstetrical, second degree: PLAN: PPD 1 Routine care support Possible discharge at 24 hours or tomorrow morning
[2021-11-18] MEDS: Ibuprofen 600 MG Tablet PO ×2 (09:55→16:29)
[2021-11-18] MEDS: Benzocaine/Lanolin/Aloe Vera 1 SPRAY EACH TOPICAL (09:56)
[2021-11-18 10:00] VITALS: BP 121/69; PULSE 84; RESP 16; TEMP 36.3; O2SAT 97
--- NOTE | 2021-11-18 10:37 | NURSING ---
talked to [facility] office at this time and informed that patient would like to go home today
--- NOTE | 2021-11-18 13:10 | PCM.DC.SUM ---
Providers Date of Admission: 11/17/21 Primary Care Physician: Dr. Marty Christensen DO Reason For Visit: VAGINAL DELIVERY Diagnosis Discharge Diagnosis (1) Vaginal delivery: Status: Acute Code(s): O80 - Encounter for full-term uncomplicated delivery (2) Care and examination of lactating mother: Status: Acute Code(s): Z39.1 - Encounter for care and examination of lactating mother (3) Laceration, obstetrical, second degree: Status: Acute Code(s): O70.1 - Second degree perineal laceration during delivery Medications at Discharge Home Medications albuterol sulfate 90 mcg PO PRN PRN 02/04/16 [id number] [PNV OB+DHA] See Rx Instructions PO .COMPLEX 01/14/20 cetirizine [Zyrtec] 10 mg PO DAILY 11/17/21 sertraline 100 mg PO DAILY 11/17/21 Hospital Course Operations - (Induction of labor and vaginal delivery and repair of second degree laceration) Weight / BMI Weight Weight: 98 kg Body Mass Index (BMI) 34.8 ABG / Lab / Microbiology Data Result Diagrams: 11/18/21 05:55 Laboratory: Laboratory Results - last 24 hr 11/18/21 05:55: WBC 9.6, RBC 3.50 L, Hgb 9.5 L, Hct 29.9 L, MCV 85.4, MCH 27.1, MCHC 31.8 L, RDW Std Deviation 53.4 H, RDW Coeff of Maikel 17.2 H, Plt Count 131 L, MPV 11.0 D/C Instructions Discharge Diet: No restrictions May resume sexual activity in: 6 weeks Call your doctor if your incision/area has: Continuous Slow Oozing, Sudden Increased Bleeding, Foul Smelling Discharge and Swelling at the incision site Call your doctor if you observe: Fever of 101 or Higher and Inability to urinate Please Follow Up With: Renee Arshad MD When: Follow up with our office in 1-2 and 6 weeks or as needed. [phone] Meaningful Use Info Meaningful Use Diagnoses (Choose all that apply): None applicable Discharge Plan Admission Admit Date/Time: 11/17/21 07:05 Attending Provider: Claire Londono Primary Care Provider: Marty Christensen Discharge Orders/Prescriptions Prescriptions: No Action albuterol sulfate 1 INHALER inhaler 90 mcg PO PRN PRN (Reason: Asthma) RF: 0 PNV OB+DHA 27-1-50-250 mg combo pack See Rx Instructions PO .COMPLEX RF: 0 Zyrtec 10 mg Capsule 10 mg PO DAILY RF: 0 sertraline 100 mg tablet 100 mg PO DAILY RF: 0 Referrals / Follow Up: Marty Christensen DO [Primary Care Provider] - Disposition Disposition (needs filled in before D/C Order can be placed): Home, Self Care
[2021-11-18 13:16] VITALS: BP 106/55; PULSE 71; RESP 16; TEMP 36.6
--- NOTE | 2021-11-18 14:33 | CASEMGMT ---
Social Work Assessment Labor and Delivery Unit Date/Time of referral: 11/17/21, 23:59 Date/Time of assessment: 11/18/21, 2:15pm Reason for referral: Maternal history of anxiety, and on Zoloft History obtained from FOB and MOB Household Composition: MOB and FOB live with together with their 22 month old daughter and now son, Troy. They have been together since 2013. Patient's parent/guardian status: MOB and FOB are guardians of both children Medical History: Baby: Born 11/17/21 at 4:37pm, 3815 grams. Apgars were 8 and 8 at one and five minutes. Pt had nonreactive heart rate prior to . MOB has asthma, is a thalassemia carrier, white coat syndrome w/diagnosis of hypertension, anxiety. 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 FOB is a manager regional sales with [employer]. MOB plans to return to work. Financial Concerns: None Infant supplies: They have all needed supplies for the baby including crib, bassinet, car seats, clothing, diapers. MOB plans to breast feed. Childcare/Caregivers: the have a photographic restorer, and both mother and [id number] watch the children. Transportation: They have 3 vehicles. Programs/agencies involved: None Children's Services/legal issues: None Behavioral Health Issues: Substance abuse, none for FOB or MOB. No drug screens completed. Mental Health: FOB, none. MOB: history of anxiety. EM states has been on Zoloft since the second trimester of being with her daughter, and she is doing well with this. EM is not in counseling, declines any need for counseling at this time. Family/Social Stressors: None Support Systems: MOB and FOB's parents, MOB's sisters Depression and anxiety/Shaken baby/Safe Sleeping/Counseling Resources/Help Me Grow: SW gave MOB and FOB information on all of these topics and reviewed all information. Assessment: SW spoke w/FOB and MOB, both open to SW speaking w/them, answered all questions appropriately. Parents appeared to be supportive of one another. Baby in bassinet while SW speaking w/parents, both were paying attention to the baby and seemed appropriate in their interactions. SW spoke w/MOB in particular about signs and symptoms of depression/anxiety. We also spoke about the day yesterday, as she delivered after a rapid response team was called. She states it was a stressful few moments but is fine now. She states she does plan to call her physician to ask for an increase in Zoloft, in anticipation of her possibly having increased anxiety after everything that happened yesterday. Plan: Baby to go home w/MOB and FOB. No further social service needs requested or indicated at this time. ANGELITO Blackman
[2021-11-18 18:17] VITALS: BP 109/67; PULSE 66; RESP 16; TEMP 36.4
== END 2021-11-18 19:10 | disposition home or self-care (01) | DRG 807 ==
PROVIDERS: Admitting Provider Obstetrics & Gynecology; PCP Family Medicine; Referring Provider Advanced Practice Midwife; Visit Provider Obstetrics & Gynecology
DX: O76 Abnormality in fetal heart rate and rhythm complicating labor and delivery (principal); Z37.0 Single live birth; J45.909 Unspecified asthma, uncomplicated; O77.0 Labor and delivery complicated by meconium in amniotic fluid; O36.63X0 Maternal care for excessive fetal growth, third trimester, not applicable or unspecified; O69.81X0 Labor and delivery complicated by cord around neck, without compression, not applicable or unspecified; O70.1 Second degree perineal laceration during delivery; O99.52 Diseases of the respiratory system complicating childbirth; Z14.8 Genetic carrier of other disease; Z3A.39 39 weeks gestation of pregnancy
CPT/HCPCS: 59025; 59050; 85025; 85027; 86850; 86900; 86901; 99218; J7120; G0378

== ENCOUNTER 2022-05-05 13:14 | Emergency (ER) | payer OTHER, SELFPAY ==
[2022-05-05 13:15] VITALS: BP 123/71; PULSE 69; RESP 16; TEMP 36.6; O2SAT 96; BMI 30.7
--- NOTE | 2022-05-05 13:52 | EX.ED.DYSGE1 ---
HPI History of Present Illness Chief Complaint: General Illness Detail of Chief Complaint: Pressure and not feeling well for about 4 days Informant: patient Narrative Narrative: Patient presents to the emergency department complaint of not feeling well for the last 4 days. Patient had a sore throat and cough and low-grade fever up to 100.1. She had 2 negative COVID test at home and yesterday was seen in urgent care and had a negative COVID and negative influenza. Patient continues to complain of head pressure. She denies urinary symptoms. She denies sick contacts. Patient is taken Tylenol and was prescribed prednisone but still having head pressure. She complains of photophobia. She is had nausea but no vomiting. Patient also with 2 watery stools today. [facility] Medical History (Updated 05/05/22 @ 15:[address] Isabel Stark ) Asthma Laceration, obstetrical, second degree Thalassemia carrier Thalassemia carrier Vaginal delivery White coat syndrome with diagnosis of hypertension Home Medications albuterol sulfate 90 mcg/actuation aerosol inhaler 90 mcg PO PRN PRN Asthma 02/04/16 [History Last Taken Unknown] cetirizine 10 mg capsule (Zyrtec) 10 mg PO DAILY allergies 11/17/21 [History Last Taken 11/17/21 06:00 1 tab] sertraline 100 mg tablet 100 mg PO DAILY anxiety 11/17/21 [History Last Taken 11/17/21 06:00 1 tab] amoxicillin 500 mg tablet 500 mg PO TID #42 tabs 05/05/22 [Rx Last Taken Unknown] multivitamin 05/05/22 [History Last Taken Unknown] prednisone 20 mg tablet 2 tab PO DAILY 05/05/22 [History Last Taken Unknown] Allergy/AdvReac Type Severity Reaction Status Date / Time No Known Allergies Allergy Verified 05/05/22 13:19 Family History (Updated 03/30/21 @ 15:45 by Lisa Matos NP, GERMINATION TESTING MANAGER-C) Father Cancer oral cancer Mother No problems noted. 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 current occupational exposures/hazards: No pets and animals: Yes history of recent travel: Yes out of country: Yes sexually active: Yes Smoking Status: Never smoker second hand exposure: Yes alcohol intake: current alcohol intake frequency: holidays/special occasions only details: not when substance use type: does not use seatbelt use: always do you feel safe at home: Yes 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 ROS ROS ED Review of Systems ROS Unobtainable: other Constitutional Constitutional ED: Reports fever(s) and lethargy; Denies chills, sweats or weight loss Eyes Eyes: Denies blurry vision, change in vision or diplopia ENT ENT ED: Reports sore throat; Denies rhinorrhea Cardiovascular Cardiovascular: Reports chest pain and racing heartbeat; Denies orthopnea Respiratory/Chest Respiratory/Chest: Reports cough, dyspnea and dyspnea on exertion; Denies orthopnea or sputum Gastrointestinal Gastrointestinal: Reports diarrhea; Denies abdominal pain, nausea or vomiting Genitourinary Genitourinary ED: Denies dysuria, hematuria or urinary frequency Musculoskeletal Musculoskeletal: Reports myalgias; Denies arthralgias, back pain or neck pain Integumentary Denies abscess, Abrasions or rash Neurologic Neurologic: Reports headache(s); Denies weakness Psychiatric Psychiatric: Denies anxiety, depression or suicidal thoughts Endocrine Endocrinology: Denies polydipsia, polyphagia or polyuria Hematologic/Lymphatic Hematologic/Lymphatic: Denies easy bleeding, easy bruising or lymphadenopathy Allergic/Immunologic Allergic/Immunologic ED: Denies mouth swelling, tongue swelling or urticaria EXAM Physical Exam Const Vital Signs: 05/05/22 13:15 05/05/22 14:20 Temperature 98 F Temperature Source Temporal Pulse Rate 69 Respiratory Rate 16 Respiratory Effort Normal Respiratory Pattern Normal Blood Pressure 123/71 H Blood Pressure Mean 88 Pulse Ox 96 Oxygen Delivery Method Room Air Positive well nourished and well developed General Appearance ED: well developed and NAD HEENT Reports TM's clear and moist mucous membranes normocephalic and atraumatic; Negative for trauma or tenderness Tympanic Membrane ED: Yes TM's clear Eyes PERRL and EOMs intact bilaterally General Eye ED: Negative for pale conjunctiva or scleral icterus Neck no lymphadenopathy, supple and no JVD Neck Narrative: No nuchal rigidity General: Negative for tenderness Chest Wall inspection of chest normal and palpation of chest normal Chest: Negative for tenderness Resp normal respiratory effort and clear to auscultation bilaterally Effort and Inspection: Negative for respiratory distress or pain with movement Auscultation: Negative for rhonchi, wheezes or diminished lung sounds Cardio regular rate, regular rhythm, S1 normal heart sound, S2 normal heart sound and no murmurs Peripheral Pulses: pulses 2+ throughout GI normal to inspection, nondistended, normoactive bowel sounds, soft to palpation, non-tender, non-distended and no masses Back/Spine no CVA tenderness and no thoracic nor lumbar tenderness Extremity normal to inspection General Extremety ED: Negative for edema General Extremity: Negative for edema Neuro oriented x3, CN's II-XII intact bilaterally, no sensory deficits noted and gait normal Neuro Narrative: Negative Kernig's and negative Brudzinski sign. Sensorium / Orientation: awake, alert, oriented to person, oriented to place and oriented to time Motor Exam: strength 5/5 throughout and strength abnormal Psych mental status grossly normal Skin no rashes or lesions noted and no wounds MDM MDM MDM Narrative Medical decision making narrative: IV line established on arrival. Patient was medicated with Reglan, Benadryl, and Toradol and she had some pain relief with that. Patient had a slightly elevated white count 11.4 with 92% neutrophils however patient was recently started on prednisone. Chemistries were unremarkable. Urinalysis was normal. I did send off a COVID PCR test. Given the sinus pain and pressure over the frontal sinuses will cover with amoxicillin for any bacterial causes. Patient to follow-up with primary care physician in 3 to 5 days. Lab Data Attestation: I reviewed the patient's lab results. Labs: Laboratory Results - last 24 hr 05/05/22 05/05/22 05/05/22 14:20 14:20 14:40 WBC 11.4 H RBC 4.62 Hgb 13.2 Hct 40.1 MCV 86.8 MCH 28.6 MCHC 32.9 RDW Std Deviation 42.5 RDW Coeff of Maikel 13.4 Plt Count 283 MPV 10.7 Immature Gran % (Auto) 0.300 Neut % (Auto) 92.5 H Lymph % (Auto) 6.0 L Cataño % (Auto) 1.0 Eos % (Auto) 0.0 Baso % (Auto) 0.2 Absolute Neuts (auto) 10.6 H Absolute Lymphs (auto) 0.69 L Nucleated RBC % 0 Sodium 140 Potassium 3.7 Chloride 110 H Carbon Dioxide 24.0 Anion Gap 6 BUN 15 Creatinine 0.95 Estim Creat Clear Calc 84.75 Est GFR (MDRD) Af Amer 91 Est GFR (MDRD) Non-Af 75 BUN/Creatinine Ratio 15.8 Glucose 128 H Calcium 9.4 Urine Color Yellow Urine Clarity Clear Urine pH 6.0 Ur Specific Shamrock 1.010 Urine Protein Negative Urine Glucose (UA) Normal Urine Ketones Negative Urine Occult Blood Negative Urine Nitrite Negative Urine Bilirubin Negative Urine Urobilinogen Normal Ur Leukocyte Esterase Negative Urine RBC 0 SEEN Urine WBC 0 SEEN Ur Squamous Epith Cells 0 SEEN Urine Bacteria 0 SEEN Urine Mucus 0 SEEN Discharge Plan Triage Chief Complaint: General Illness ED Provider: Isabel Stark Dx/Rx/DC Orders Clinical Impression: Sinusitis, Cephalalgia, Acute viral syndrome Instructions: ED Sinusitis (Antibiotic Treatment), ED Viral Syndrome (Adult) Prescriptions: New amoxicillin 500 MG tablet 500 mg PO TID Qty: 42 0RF No Action albuterol sulfate 1 INHALER inhaler 90 mcg PO PRN PRN (Reason: Asthma) Zyrtec 10 mg Capsule 10 mg PO DAILY sertraline 100 mg tablet 100 mg PO DAILY prednisone 20 mg tablet 2 tab PO DAILY multivitamin Primary Care Provider: Marty Christensen Referrals: Marty Christensen DO [Primary Care Provider] - 3-5 Days Disposition Disposition: Home, Self Care
[2022-05-05] MEDS: 0.9% Normal Saline 1,000 ML 1000 ML IV (14:13)
[2022-05-05] MEDS: DiphenhydrAMINE 50 MG/ML Syringe 25 MG IV (14:13)
[2022-05-05] MEDS: Metoclopramide 10 MG/2 ML Vial IV (14:13)
[2022-05-05] MEDS: Ketorolac 30 MG/ML Syringe IV (14:13)
[2022-05-05 14:30] LABS: Absolute Lymphocyte Count 0.69 X10^3/uL (0.83-4.51); Absolute Neutrophil Count 10.6 X10^3/uL (2.0-7.7); Basophil# 0.02 X10^3/uL; Basophil% 0.2 % (0-1); Hematocrit 40.1 % (37-47); Hemoglobin 13.2 g/dL (12.0-15.0); Lymphocyte # 0.69 X10^3/ul (0.83-4.51); Mean Corp Hgb Conc 32.9 g/dL (32-36); Mean Corpuscular Hgb 28.6 pg (27.0-32.0); Mean Corpuscular Volume 86.8 fL (81-99); Mean Platelet Vol. 10.7 fl (6.2-12.0); Monocyte# 0.11 X10^3/uL; NRBC Flagged by Analyzer 0 % (0-5); Neutrophil # 10.58 X10^3/uL (2.7-7.7); Neutrophil % 92.5 % (47-70); Platelet Count 283 K/mm3 (150-450); RBC Distribution Width CV 13.4 % (11.6-14.6); RBC Distribution Width SD 42.5 fl (35.1-43.9); Red Blood Count 4.62 M/mm3 (4.2-5.4); White Blood Count 11.4 K/mm3 (4.4-11.0)
[2022-05-05 14:43] LABS: Anion Gap 6 (5-15); BUN 15 mg/dL (7-18); BUN/Creat Ratio 15.8 RATIO (10-20); Calcium,Total 9.4 mg/dL (8.5-10.1); Chloride 110 mmol/L (98-107); Creatinine, Serum 0.95 mg/dL (0.55-1.02); EST Glomerular Filtration Rate 75 mL/min (>60); Est Glom Filt Rate - Afr Amer 91 mL/min (>60); Estimated Creatinine Clearance 84.75 ml/min; Glucose 128 mg/dL (74-106); Potassium 3.7 mmol/L (3.5-5.1); Sodium Level 140 mmol/L (136-145)
[2022-05-05 14:44] LABS: Bacteria 0 SEEN /hpf (None Seen); Mucous, Urine 0 SEEN /hpf (<or=2+); Red Blood Cells-Urine 0 SEEN /hpf (0-5); Squamous Epithelial Cells - UA 0 SEEN /hpf (5-10); White Blood Cells 0 SEEN /hpf (0-5)
[2022-05-05 14:46] LABS: Color, Urine Yellow (Yellow); Glucose, Dipstick Normal (Normal); Ketone-Dipstick Negative (Negative); Leukocyte Esterase-Dipstick Negative /ul (Negative); Nitrite-Dipstick Negative (Negative); Occult Blood-Urine Negative /ul (Negative); Protein-Dipstick Negative (Negative); Urine Bilirubin Dipstick Negative (Negative); Urine Clarity Clear (Clear); Urine Urobilinogen Normal (Normal)
[2022-05-05 15:18] VITALS: BP 134/62; PULSE 71; RESP 16; O2SAT 98
== END 2022-05-05 15:19 | disposition home or self-care (01) ==
PROVIDERS: Emergency Provider Emergency Medicine; PCP Family Medicine; Visit Provider Emergency Medicine
DX: J32.9 Chronic sinusitis, unspecified (principal); B34.9 Viral infection, unspecified
CPT/HCPCS: 80048; 81001; 85025; 87635; 96361; 96374; 96375; 99283; J7030; A4216; U0003; U0005

== ENCOUNTER → 2022-06-18 | Outpatient (CLI) | payer OTHER, SELFPAY ==
[2022-06-18 13:43] LABS: Absolute Lymphocyte Count 2.53 X10^3/uL (0.83-4.51); Absolute Neutrophil Count 3.8 X10^3/uL (2.0-7.7); Basophil# 0.02 X10^3/uL; Basophil% 0.3 % (0-1); Eosinophil# 0.04 X10^3/uL; Eosinophils% 0.6 % (0-5); Hematocrit 40.9 % (37-47); Hemoglobin 13.2 g/dL (12.0-15.0); Lymphocyte # 2.53 X10^3/ul (0.83-4.51); Lymphocyte % 36.7 % (19-41); Mean Corp Hgb Conc 32.3 g/dL (32-36); Mean Corpuscular Volume 86.8 fL (81-99); Mean Platelet Vol. 11.3 fl (6.2-12.0); Monocyte# 0.52 X10^3/uL; Monocyte% 7.5 % (0-10); NRBC Flagged by Analyzer 0 % (0-5); Neutrophil # 3.77 X10^3/uL (2.7-7.7); Neutrophil % 54.8 % (47-70); Platelet Count 257 K/mm3 (150-450); RBC Distribution Width CV 12.9 % (11.6-14.6); RBC Distribution Width SD 40.9 fl (35.1-43.9); Red Blood Count 4.71 M/mm3 (4.2-5.4); White Blood Count 6.9 K/mm3 (4.4-11.0)
[2022-06-18 14:19] LABS: ALB/GLOB Ratio 1.1 RATIO (0.9-2.4); AST(SGOT) 14 U/L (15-37); Alanine Aminotransfer ALT/SGPT 23 U/L (13-56); Alkaline Phosphatase 78 U/L (45-117); Anion Gap 7 (5-15); BUN 12 mg/dL (7-18); BUN/Creat Ratio 14.8 RATIO (10-20); Calcium,Total 9.5 mg/dL (8.5-10.1); Chloride 104 mmol/L (98-107); Creatinine, Serum 0.81 mg/dL (0.55-1.02); EST Glomerular Filtration Rate 91 mL/min (>60); Est Glom Filt Rate - Afr Amer 110 mL/min (>60); Globulin 3.7 g/dL (2.2-4.2); Glucose 91 mg/dL (74-106); Protein, Total 7.7 g/dL (6.4-8.2); Sodium Level 139 mmol/L (136-145)
== END | disposition home or self-care (01) ==
LOC: LAB 12:54
PROVIDERS: PCP Family Medicine; Referring Provider Family Medicine; Visit Provider Family Medicine
DX: R10.11 Right upper quadrant pain (principal)
CPT/HCPCS: 36415; 80053; 85025

== ENCOUNTER → 2022-06-29 | Outpatient (CLI) | payer OTHER, SELFPAY ==
--- NOTE | 2022-06-29 08:27 | US_ITS ---
STUDY: ABDOMINAL ULTRASOUND - RIGHT UPPER QUADRANT REASON FOR VISIT: Female, 27 years old RUQ PAIN TECHNIQUE: Ultrasound evaluation of the right upper quadrant was performed with real-time and static brower-scale imaging. TECHNICAL QUALITY: Adequate. COMPARISON: None. FINDINGS: Liver: The liver measures 14.5 cm. There is normal echogenicity of the liver. The bile ducts are within normal limits. There is hepatic color flow. The direction of portal flow is hepatopetal. There is no demonstrated mass lesion. Gallbladder: Normal distended gallbladder. The gallbladder wall measures 1.5 mm. There is a negative sonographic Aguero''s sign. There is no pericholecystic fluid. There are no gallstones. Common Bile Duct (C.B.D.): The common bile duct measures 2.0 mm. Pancreas: Normal size of the head, body and tail of the pancreas. There is normal echogenicity of the pancreas. There is no demonstrated pancreatic mass or cyst. Right Kidney: Normal size of the right kidney. The right kidney measures 10 cm x 5.4 cm x 4.8 cm. Normal renal cortex. The right cortex measures 1.5 cm. There is no demonstrated renal mass or cyst. There is no right hydronephrosis. US/Abdomen Limited IMPRESSION: Normal right upper quadrant ultrasound examination. Electronically Signed: Ulises Polanco MD at 11:12 EDT ,
[2022-06-29 09:55] LABS: T4 Free Direct 0.81 ng/dL (0.76-1.46); Thyroid Stim Hormone (TSH) 1.55 uIU/mL (0.358-3.74)
== END | disposition home or self-care (01) ==
PROVIDERS: PCP Family Medicine; Referring Provider Family Medicine; Visit Provider Family Medicine
DX: R10.11 Right upper quadrant pain (principal); R53.83 Other fatigue
CPT/HCPCS: 36415; 76705; 84439; 84443

== ENCOUNTER → 2022-08-17 | Outpatient (CLI) | payer OTHER, SELFPAY ==
--- NOTE | 2022-08-17 10:02 | NM_ITS ---
CLINICAL: 27-year-old female with history of right upper quadrant abdominal pain. RADIONUCLIDE HEPATOBILIARY SCINTIGRAPHY COMPARISON: Abdominal ultrasound report 06/29/2022 FINDINGS: Following the intravenous administration of 5.3 mCi of 99m Tc Mebrofenin, hepatobiliary images reveal: 1. Relatively prompt and homogeneous radiopharmaceutical concentration is noted by a normal sized liver. No parenchymal defects are identified. 2. Gallbladder activity is identified at 15 minutes post radiopharmaceutical administration. 3. Small intestinal tract is observed at 30 minutes following tracer injection. 4. Washout of the radiopharmaceutical by the hepatic parenchyma appears qualitatively normal. 5. There is scintigraphic evidence of pre-CCK duodenal gastric reflux. Cholecystokinin (0.02 ug/kg) was administered intravenously over a 30-minute period. The post CCK gallbladder ejection fraction calculated at 30 minutes following Cholecystokinin administration was noted to be 15 % (normal greater than 35%). There is scintigraphic evidence of continued post CCK duodenal gastric reflux. NM/Hepatobilliary Img w/Pharm Int IMPRESSION: 1. ABNORMAL 99m Tc Mebrofenin hepatobiliary imaging examination with Cholecystokinin. A. A gallbladder ejection fraction calculated to be less than 35% following the administration of Cholecystokinin is consistent with the presence of functional hepatobiliary disease (gallbladder and/or sphincter of Oddi dyskinesia) and/or organic hepatobiliary disease (chronic acalculous cholecystitis and/or cystic duct syndrome) in patients with intermediate to high pretest likelihoods of hepatobiliary illness. (Analilia Marques et al, Journal of Nuclear Medicine 32:1695, 1990). B. There is scintigraphic evidence of pre-post CCK duodenal-gastric reflux. (Vandana et al, Nucl Med Kari Wilma Press pg. 35, 1980). Electronically Signed: Alan Tran, at 21:38 EDT ,
== END | disposition home or self-care (01) ==
LOC: NM 10:00
PROVIDERS: PCP Family Medicine; Visit Provider Family Medicine
DX: R10.11 Right upper quadrant pain (principal)
CPT/HCPCS: 78227; A9537; J2805

== ENCOUNTER 2022-08-31 10:23 | Day surgery (SDC) | payer OTHER, SELFPAY ==
[2022-08-31] VITALS (12 sets, daily range): BP systolic 105–127; BP diastolic 66–86; PULSE 76–92; RESP 14–18; TEMP 36.6–37.4; O2SAT 93–100; BMI 31.0
--- NOTE | 2022-08-31 10:29 | HP.PCM_ITS ---
History and Physical Date of Admission: 08/31/22 Date of Service:? 08/24/22 MR#: [id number] Acct: [id number] Name:SARAH TAN Rep #: [id number] : 1995 ? ? Provider: Dr. Evie Loo MD Age/Sex:? 27/F ? ? [place] [facility] [place] Status: Signed Intake Vital Signs ? 05/05/2213:15 08/24/2209:13 Height 5 ft 6 in 5 ft 6 in Weight: ? 194 lb 8 oz BMI ? 31.4 BP ?B 115/73 Blood Pressure Location ? Rt brachial Position ? Sitting RespirationB ? 18 Pulse ? 79 Pulse Source ? Monitor Temp ? 97.4 F L Temp Source ? Temporal Pulse Oximetry (%) ? 98 Intake Visit Reasons:?RUQ PAIN Chief Complaint: RUQ Pain/Biliary dyskinesia Utilization Review Rn Required: No Is patient in pain?: No Allergies No Known Allergies Allergy (Verified 08/25/22 14:43) Medications albuterol sulfate 90 mcg/actuation aerosol inhaler 90 mcg PO PRN PRN Asthma 02/04/16 [History Confirmed 08/25/22] cetirizine 10 mg capsule (Zyrtec) 10 mg PO DAILY allergies 11/17/21 [History Confirmed 08/25/22] sertraline 100 mg tablet 100 mg PO DAILY anxiety 11/17/21 [History Confirmed 08/25/22] multivitamin 1 tab PO/SL DAILY 05/05/22 [History Confirmed 08/25/22] hydroxyzine pamoate 25 mg capsule 25 mg PO BID PRN ANXIETY 08/25/22 [History Confirmed 08/25/22] PFSH Medical History?(Updated 08/26/22 @ 16:[address] 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 H/O wisdom tooth extraction History of vacuum extraction assisted delivery Family History?(Updated 08/24/22 @ 09:13 by Rosita Maxwell) Father Cancer ?? ? oral cancer AsthmaMother ArthritisGrandfather Cancer ?? ? lungGrandfather Cancer ?? ? skin; pancreaticGrandmother CVA (cerebral vascular accident) Myocardial infarction Thyroid disorder Cancer ?? ? skin cancer Social History? adopted:? No household members:? spouse and children housing:? house number of children:? 1 current occupational status:? employed and student current occupation:? [employer] current occupational exposures/hazards:? No pets and animals:? Yes history of recent travel:? Yes out of country: Yes sexually active:? Yes Smoking Status:? Never smoker second hand exposure:? Yes alcohol intake:? current alcohol intake frequency: holidays/special occasions only details:? not when substance use type:? does not use seatbelt use:? always do you feel safe at home:? Yes additional social history:? [employer]adio- CAB HPI HPI HPI: 7-year-old female presents due to right-sided abdominal pain after eating.? Patient states he can range between a 10-6.? Patient had an ultrasound showed no gallstones.? And normal wall and normal common bile duct no pericholecystic fluid.? Patient's HIDA scan showed a 15% ejection fraction.? Patient states more recently she is also been having increased GI symptoms which occurred diarrhea.? Patient states she occasionally has some nausea or reflux currently is not on any medication--patient is states this not happening daily maybe couple times a week ROS General General: Yes fatigue; No weight change, appetite, colon cancer, breast cancer or weakness HEENT HEENT: No difficulty swallowing, eye injury, eye surgery, swollen glands or hoarseness Endo Endocrine: No thyroid disease, diabetes mellitus, thyroid cancer, Hair loss, heat intolerance or cold intolerance Skin Skin: No rash or changing moles Breast Breast: No left breast lump, right breast lump, nipple discharge, breast pain, abnormal mammogram, abnormal US or breast enlargement Musc Musculoskeletal: No back problems, arthritis, rheumatoid arthritis, gout or joint pain Cardio Cardiovascular: No murmur, pacemaker, heart disease, atrial fibrillation, high blood pressure, heart attack, heart stent, palpitations, shortness of breat with exertion or chest pain Psych Psychiatric: Yes anxiety; No depression or hearing voices Resp Respiratory: No shortness of breath, No sleep apnea, No cough, No COPD, Yes asthma, No emphysema and No wheezing Gastro Gastrointestinal: Yes abdominal pain, Yes nausea or vomiting, Yes diarrhea, No constipation, No blood in stool, Yes acid reflux, No hemorrhoids, No ulcers, Yes gallbladder problem and No black,tarry stools Morgan Hematologic: No blood thinners, No blood disorders, No bleeding, Yes anemia and No blood clots Neuro Neurologic: No system reviewed and no additional complaints, except as documented, No as per HPI, No abnormal gait, No abnormal hearing, No abnormal movements, No abnormal speech, No behavioral changes, No burning sensations, No confusion, No convulsions, No disequilibrium, No dizziness, No localized weakness, No frequent falls, No headache(s), No lack of coordination, No loss of vision, No memory loss, No numbness, No other visual disturbances, No radicular pain, No restless legs, No sensory deficit, No syncope, No tingling, No tremor(s), No weakness and No other Exam Const General: cooperative, healthy appearing and no acute distress [facility] Head: normal to inspection Resp Effort & Inspection: normal respiratory effort Cardio Rate: regular rate GI Inspection: non-distended Palpation: soft, no guarding, no hernias and nontender Skin General: no rashes or lesions noted Neuro General: patient oriented x3 Extrem General: no clubbing, cyanosis or edema Psych Affect: normal affect Assessment and Plan Assessment and Plan (1) Biliary dyskinesia: ?Status:?Acute Plan Patient is having some reflux symptoms we will put her on omeprazole 40 mg p.o. daily for the perioperative period.? Patient is agreeable with plan. Reviewed the anatomy with the patient and discussed the procedure: laparoscopic cholecystectomy with possible cholangiograms, possible open. Review risks including but not limited to bleeding, infection, hernia, bile leak, retained gallstones requiring another procedure ERCP- Endoscopic Retrograde Cholangiopancreatography, injury to another organ (bile ducts, common bile duct, small bowel, etc.) and conversion to an open procedure. All questions were answered. Evie Loo M.D. Pager: [phone] [facility] [address] [place] [address], [address] [place] [address] Office: [phone] Coding Level of Care Code Off vis,new,level 3 Diagnoses Biliary dyskinesia? K82.8 08/26/22 1614 <Electronically signed by Evie Loo MD> Date Evie Loo MD
[2022-08-31 10:58] LABS: Internal QC Validated? YES +Cl - CLEAR BKGD; Pregnancy, Urine Negative Negative
[2022-08-31] MEDS: Lactated Ringers 1,000 ML 15 ML IV ×2 (11:35→15:34)
--- NOTE | 2022-08-31 12:00 | GALL_PTH ---
PATIENT: SARHA BAER LOC: [facility] [place] U#:[id number] AGE/SX: 27/F ROOM: RE08/31/[address]: Dr. Evie Loo MD : 1995 BED: DIS: 08/31/2022 SPEC #: [id number] RECD: 08/31/22 14:50 STATUS: CHAPINCITO REKimberly #: [id number] LEX: 08/31/22 12:[address]: Evie Loo DEPT: SURGICAL PATHOLOGY RECD BY: Lcuie Carballo ENTERED: 09/01/22 11:42 SP TYPE: MARY RAMIREZ DR: Dr. Marty Christensen, DO Tissues: Gallbladder, NOS Procedures: Surgery Specimen Level III HEADER OPERATION: Laparoscopic cholecystectomy PRE-OP DIAGNOSIS: Biliary dyskinesia TISSUE SUBMITTED: Gallbladder MICROSCOPIC DIAGNOSIS Gallbladder, cholecystectomy: Minimal chronic cholecystitis. See comment. /DELORIS 09/02/22 COMMENT No stones are identified in the container or in the gallbladder. MICROSCOPIC DESCRIPTION Slides are reviewed. GROSS DESCRIPTION Received is one container labeled with the patient's name and designated gallbladder. The specimen consists of a gallbladder measuring 8 cm in length and up to 4 cm in diameter. The external surface is pink-obrien, smooth and glistening for the most part. Focally it is granular, hemorrhagic and contains cautery artifact. The gallbladder contains green-yellow mucoid bile. No stones are identified in the container or in the gallbladder. The mucosa is bile-stained and without any mass lesions. The gallbladder wall measures up to 0.1cm in thickness. [employer] sections from the gallbladder and the cystic duct are submitted in one cassette. / SJ:cc 09/01/2022 TC:3 CPT: 42738
[2022-08-31] MEDS: Cefazolin 2 GM in 0.9% Normal Saline 100 ML IV (12:20)
--- NOTE | 2022-08-31 12:26 | RAD_ITS ---
STUDY: INTRAOPERATIVE CHOLANGIOGRAM. REASON FOR EXAM: Female, 27 years old. Right upper quadrant pain. FLUOROSCOPY TIME (if supplied): ( 16 seconds ) minutes/seconds. A cine loop of 55 images was submitted. TECHNIQUE: An intraoperative cholangiogram was performed by the surgeon. Imaging was submitted. COMPARISON: None. FINDINGS: The intra and extrahepatic biliary ducts are unremarkable. No intraluminal filling defect is seen. There is free flow of contrast into the duodenum. RAD/Cholangiogram/ O R,Initial IMPRESSION: Unremarkable intraoperative cholangiogram. Electronically Signed: Ulises Polanco MD at 15:08 EST ,
[2022-08-31] MEDS: Bupivacaine 0.25% 30 ML Vial (13:13)
[2022-08-31] MEDS: Sugammadex Sodium 200 MG/2 ML VIAL IV (13:20)
--- NOTE | 2022-08-31 13:21 | OP.PCM_ITS ---
Report of Operation Date of Procedure: 08/31/22 Pre-Operative Diagnosis: Biliary dyskinesia Post-Operative Diagnosis: Same Surgery/Procedure Performed:: Laparoscopic cholecystectomy with cholangiograms Surgeon: Evie Loo Type of Anesthesia: General/Supplemental Anesthesiologist: Myron Quach Special Medications: Ancef 2 g IV x1 Specimen's removed: Gallbladder Estimated Blood Loss (mL): 20 cc Description of Procedure: Indications: this is a 27 year-old female who developed abdominal p ain/nausea/vomiting and on workup was found to have biliary dyskinesia, with a normal common bile duct. Laparoscopic cholecystectomy was elected. Description procedure: The patient was placed on operating table in supine position. A timeout was completed verifying correct patient, procedure, site, position and special equipment prior to beginning procedure. General Anesthesia was induced. The abdomen was prepped and draped in usual sterile fashion. An incision was made in the natural skin line above the umbilicus. The fascia was elevated and incised. The peritoneum was elevated and incised. Entry into the peritoneum was confirmed visually and no bowel was noted in the vicinity of the incision. Rees trocar was placed. The abdomen was insufflated with carbon dioxide to a pressure of 12-15 mmHg. Patient tolerated insufflation well. The laparoscope was then inserted and abdomen inspected. No injuries from initial trocar placement were noted. Additional trochars were then inserted in the following locations 5 mm trocar in the epigastrium and 2 more 5 mm trochars along the right costal margin. The abdomen was inspected no abnormalities were found. The table is placed in reverse Trendelenburg position with the right side up. The dome of the gallbladder was grasped with atraumatic grasper passed through the lateral port and retracted over the dome of the liver. Infundibulum was then grasped with atraumatic grasper through the midclavicular port and retracted to the right lower quadrant. This maneuver exposed Calot's triangle. The peritoneum overlying the gallbladder infundibulum was then incised and cystic duct and artery identified and circumferentially dissected. Frost catheter was used for cholangiograms. The cholangiogram showed good filling of the common bile duct into the duodenum with no filling defects, good filling of the right and left bile ducts as well. The cystic duct and artery were then doubly clipped and divided close to the gallbladder. The gallbladder then dissected from its peritoneal attachments by electrocautery, the gallbladder was slightly intrahepatic?Erbe was used for hemostasis of the gallbladder fossa as there was minimal plane between the liver and gallbladder. Hemostasis was checked and the gallbladder was removed using the endoscopic retrieval bag through the umbilical port. The gallbladder is passed off table as specimen. The gallbladder fossa was irrigated with saline and hemostasis obtained. There is no evidence of bleeding from the gallbladder fossa or cystic artery leakage of bile from the cystic duct stump. Secondary trochars removed under direct vision. No bleeding was noted the trocar sites. The laparoscope was withdrawn and umbilical trocar removed. The abdomen was allowed to collapse. The fascia of the 12 mm trocar was closed with a [id number] 0 Vicryl suture. The skin was closed with sutures of 4-0 Monocryl and Steri-Strips. The patient was extubated. The patient tolerated procedure well and was taken to the postanesthesia care unit in stable condition. Complications none
--- NOTE | 2022-08-31 13:24 | DCINST_ITS ---
Discharge Instructions Diet Discharge Diet: Light diet - advance as tolerated Activity Discharge Activity: May Not Drive (while taking narcotic pain medications.) May shower in (days): 1 Lifting Restrictions: no lifting >20 lbs x 2 wks, no strenuous exercise for 4 wks Dressing / Incision Call your doctor if your incision/area has: Continuous Slow Oozing, Sudden Increased Bleeding, Increased Pain/ Swelling, Increased Redness, Foul Smelling Discharge and Swelling at the incision site Call your doctor if you observe: Fever of 101 or Higher Remove Dressing in: 2 days Cleanse incision/area with: Soap & Water Additional Dressing/Incision Instructions:: Steri-Strips will fall off in 7 to 10 days, if they do not fall off okay to remove after 10 days. Follow Up Care Please Follow Up With: Evie Loo MD When: Call the office for a follow-up appointment 2 weeks; after 5 PM and on the weekends call [phone] with any concerns. Test Results: Test results from this visit will be discussed in further detail at your follow- up appointment, if applicable. Discharge Plan Admission Attending Provider: Evie Loo Primary Care Provider: Marty Christensen Discharge Orders/Prescriptions Prescriptions: New oxycodone-acetaminophen 5-325 mg tablet 1 tab PO Q6H PRN (Reason: pain) 3 Days Qty: 10 0RF Continued albuterol sulfate 1 INHALER inhaler 90 mcg PO PRN PRN (Reason: Asthma) Zyrtec 10 mg Capsule 10 mg PO DAILY sertraline 100 mg tablet 100 mg PO DAILY multivitamin 1 tab PO/SL DAILY hydroxyzine pamoate 25 mg Capsule 25 mg PO BID PRN (Reason: ANXIETY) Referrals / Follow Up: Marty Christensen DO [Primary Care Provider] - Disposition Disposition (needs filled in before D/C Order can be placed): Home, Self Care
[2022-08-31] MEDS: Ketorolac 30 MG/ML Syringe IV (14:14)
[2022-08-31] MEDS: oxyCODONE 5 MG Tablet 10 MG PO (15:55)
[2022-08-31] MEDS: Acetaminophen 325 MG Tablet 650 MG PO (15:55)
== END 2022-08-31 17:00 | disposition home or self-care (01) ==
LOC: SDC 10:24 → AC 10:25
PROVIDERS: Anesthesiology; PCP Family Medicine; Referring Provider Surgery; Visit Provider Surgery
PROC: (CPT 47610; principal; 2022-08-31 11:40)
DX: K81.1 Chronic cholecystitis (principal); F41.9 Anxiety disorder, unspecified; Z79.899 Other long term (current) drug therapy
CPT/HCPCS: 47563; 00790; 74300; 76000; 81025; 88304; 93005; J7120; J2405; J3490

== ENCOUNTER 2023-06-16 18:32 | Emergency (ER) | payer OTHER, SELFPAY ==
[2023-06-16 18:33] VITALS: BP 143/74; PULSE 76; RESP 16; TEMP 36.6; O2SAT 99; BMI 32.5
[2023-06-16 18:52] LABS: Absolute Lymphocyte Count 2.42 X10^3/uL (0.83-4.51); Basophil# 0.04 X10^3/uL; Basophil% 0.6 % (0-1); Eosinophil# 0.07 X10^3/uL; Hematocrit 38.7 % (37-47); Hemoglobin 12.4 g/dL (12.0-15.0); Lymphocyte # 2.42 X10^3/ul (0.83-4.51); Lymphocyte % 34.1 % (19-41); Mean Corpuscular Hgb 28.1 pg (27.0-32.0); Mean Corpuscular Volume 87.8 fL (81-99); Mean Platelet Vol. 10.8 fl (6.2-12.0); Monocyte# 0.57 X10^3/uL; NRBC Flagged by Analyzer 0 % (0-5); Neutrophil # 3.98 X10^3/uL (2.7-7.7); Platelet Count 259 K/mm3 (150-450); RBC Distribution Width CV 13.7 % (11.6-14.6); RBC Distribution Width SD 44.3 fl (35.1-43.9); Red Blood Count 4.41 M/mm3 (4.2-5.4); White Blood Count 7.1 K/mm3 (4.4-11.0)
[2023-06-16 19:01] LABS: Internal QC Validated? YES +Cl - CLEAR BKGD; Pregnancy, Serum, hCG Quali. NEGATIVE Negative
[2023-06-16 19:09] LABS: AST(SGOT) 16 U/L (15-37); Alanine Aminotransfer ALT/SGPT 27 U/L (13-56); Albumin, Serum 3.7 g/dL (3.2-5.0); Alkaline Phosphatase 89 U/L (45-117); Anion Gap 6 (5-15); BUN 13 mg/dL (7-18); BUN/Creat Ratio 14.6 RATIO (10-20); Chloride 109 mmol/L (98-107); Creatinine, Serum 0.89 mg/dL (0.55-1.02); EST Glomerular Filtration Rate 81 mL/min (>60); Est Glom Filt Rate - Afr Amer 98 mL/min (>60); Estimated Creatinine Clearance 88.89 ml/min; Globulin 3.6 g/dL (2.2-4.2); Glucose 109 mg/dL (74-106); Potassium 3.8 mmol/L (3.5-5.1); Protein, Total 7.3 g/dL (6.4-8.2); Sodium Level 140 mmol/L (136-145)
--- NOTE | 2023-06-16 20:21 | EX.ED.DYSGE1 ---
HPI History of Present Illness Chief Complaint: Abd Pain [facility] Medical History (Updated 06/16/23 @ 21:[address] 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 Vaginal delivery White coat syndrome with diagnosis of hypertension Home Medications albuterol sulfate 90 mcg/actuation aerosol inhaler 90 mcg PO PRN PRN Asthma 02/04/16 [History Last Taken Unknown] cetirizine 10 mg capsule (Zyrtec) 10 mg PO DAILY allergies 11/17/21 [History Last Taken 08/31/22] sertraline 100 mg tablet 100 mg PO DAILY anxiety 11/17/21 [History Last Taken 08/31/22] multivitamin 1 tab PO/SL DAILY 05/05/22 [History Last Taken Unknown] hydroxyzine pamoate 25 mg capsule 25 mg PO BID PRN ANXIETY 08/25/22 [History Last Taken Unknown] dicyclomine 20 mg tablet 20 mg PO BID #60 tabs 09/14/22 [Rx Last Taken Unknown] ondansetron 4 mg disintegrating tablet 4 mg PO Q8H PRN nausea and vomiting 3 days #9 tabs 06/16/23 [Rx Last Taken Unknown] Allergy/AdvReac Type Severity Reaction Status Date / Time No Known Allergies Allergy Verified 06/16/23 18:33 Family History Father Cancer oral cancer Asthma Mother Arthritis Grandfather Cancer lung Grandfather Cancer skin; pancreatic Grandmother CVA (cerebral vascular accident) Myocardial infarction Thyroid disorder Cancer skin cancer Surgical History H/O wisdom tooth extraction History of vacuum extraction assisted delivery Hx laparoscopic cholecystectomy S/P laparoscopic cholecystectomy Social History adopted: No household members: spouse and children housing: house number of children: 1 current occupational 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 and student current occupation: [employer] current occupational exposures/hazards: No pets and animals: Yes history of recent travel: Yes out of country: Yes sexually active: Yes Smoking Status: Never smoker second hand exposure: Yes alcohol intake: current alcohol intake frequency: holidays/special occasions only details: not when substance use type: does not use seatbelt use: always do you feel safe at home: Yes 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 EXAM Physical Exam Const Vital Signs: 06/16/23 18:33 06/16/23 21:07 06/16/23 21:49 Temperature 97.8 F Temperature Source Temporal Pulse Rate 76 66 60 Respiratory Rate 16 18 18 Blood Pressure 143/74 H 120/55 L 114/69 Blood Pressure Mean 97 76 Pulse Ox 99 98 98 Oxygen Delivery Method Room Air [facility] [place] Narrative Medical decision making narrative: HISTORY OF PRESENT ILLNESS: 28-year-old female here with right lower quadrant abdominal pain that started 2 days ago. She states she is currently on menstrual cycle. Notes history of cholecystectomy otherwise no other abdominal surgical history. Notes mild nausea but no vomiting. REVIEW OF SYSTEMS: Pertinent positives: Abdominal pain, nausea Pertinent negatives: Vomiting PHYSICAL EXAM: Nursing triage notes reviewed, Vital signs reviewed Constitutional: please see mdm HENT: MMM Eyes: Pupils equal round and reactive to light, Extraocular muscles intact Neck: No stridor, no JVD, full neck ROM Lungs: Clear to auscultation, No wheezing or rales. No increased work of breathing, no conversational dyspnea, no accessory muscle use, no nasal flaring. No respiratory distress noted Heart: Regular rate and rhythm, No murmurs, No rubs and No gallops, 2+ distal pulses (radial, femoral, posterior tibial) in all extremities Abdomen: Soft, right lower quadrant TTP but no rigidity, rebound or guarding, no obvious peritoneal signs, no palpable pulsatile abdominal masses, no auscultated abdominal bruit, no obvious adnexal tenderness noted on exam. : No CVAT Extremities: No edema Neuro: No focal neurological deficits, cranial nerves II through XII intact, 5/5 strength in all extremities. Intact sensation to light touch in all extremities, 2+ reflexes bilateral patella tendons. Normal gait. No ataxia. Skin: No rash or lesions noted MEDICAL DECISION MAKING: Chief Complaint: Abdominal pain External records reviewed: No recent ED visits, imaging studies reviewed, cholangiogram from August 2022 shows unremarkable study Factors affecting care: status post laparoscopic cholecystectomy Social determinants of health: none History obtained from others: none Consults: none ALL IMAGES (IF OBTAINED) HAVE BEEN PERSONALLY REVIEWED AND INTERPRETED BY MYSELF. [facility] Narrative: Patient was hemodynamically stable, afebrile, nontoxic-appearing. Exam with right lower quadrant TTP. I considered the following differential diagnosis: UTI, pyelonephritis, nephrolithiasis, acute appendicitis, ovarian pathology including ovarian torsion, ectopic A broad lab and imaging work-up was obtained. Labs without evidence of leukocytosis, hepatobiliary production, acute kidney injury, . Given right lower quadrant TTP is concerned about acute appendicitis. Plan to obtain CT scan of the abdomen pelvis, CT scan was negative for acute appendicitis. Ectopic was ruled out given negative urine test. No evidence of pyelonephritis given negative UA.For ovarian torsion given lack of adnexal tenderness. Patient's symptoms are likely secondary to her being on her menstrual cycle. The patient and/or family, caregivers express understanding. The patient and/or family, caregivers agrees with the plan. Shared decision making: I will have a discussion with the patient and or visitors regarding risk/benefits of further testing or admission. They will be made aware of of the risk/benefits inherent in this decision they will be given the opportunity to voice understanding. Total critical care time today provided was at least 0 minutes. This excludes separately billable procedures. Critical care time (if documented) is secondary to the patient having high probability of clinically significant/life threatening deterioration in the patient's condition which required my urgent intervention. Impression: Right lower quadrant abdominal pain Pain associated with menstruation Dispo: Discharge Lab Data Attestation: I reviewed the patient's lab results. Lab results narrative: CBC without leukocytosis, severe anemia, no thrombocytopenia. BMP without evidence of significant electrolyte abnormalities, no anion gap, no acute kidney injury. LFTs show no evidence of hepatobiliary pathology. Urine negative Labs: Laboratory Results - last 24 hr 06/16/23 06/16/23 18:45 20:40 WBC 7.1 RBC 4.41 Hgb 12.4 Hct 38.7 MCV 87.8 MCH 28.1 MCHC 32.0 RDW Std Deviation 44.3 H RDW Coeff of Maikel 13.7 Plt Count 259 MPV 10.8 Immature Gran % (Auto) 0.300 Neut % (Auto) 56.0 Lymph % (Auto) 34.1 [place] % (Auto) 8.0 Eos % (Auto) 1.0 Baso % (Auto) 0.6 Absolute Neuts (auto) 4.0 Absolute Lymphs (auto) 2.42 Nucleated RBC % 0 Sodium 140 Potassium 3.8 Chloride 109 H Carbon Dioxide 25.0 Anion Gap 6 BUN 13 Creatinine 0.89 Estim Creat Clear Calc 88.89 Est GFR (MDRD) Af Amer 98 Est GFR (MDRD) Non-Af 81 BUN/Creatinine Ratio 14.6 Glucose 109 H Calcium 9.0 Total Bilirubin 0.30 AST 16 ALT 27 Alkaline Phosphatase 89 Total Protein 7.3 Albumin 3.7 Globulin 3.6 Albumin/Globulin Ratio 1.0 Serum , Qual NEGATIVE Urine Color Yellow Urine Clarity Clear Urine pH 7.0 Ur Specific [place] 1.005 Urine Protein Negative Urine Glucose (UA) Normal Urine Ketones Negative Urine Occult Blood Negative Urine Nitrite Negative Urine Bilirubin Negative Urine Urobilinogen Normal Ur Leukocyte Esterase Negative Urine RBC 0 SEEN Urine WBC 0 SEEN Ur Squamous Epith Cells 0-5 SEEN Urine Bacteria 0 SEEN Urine Mucus 0 SEEN Radiography Diagnostic Testing: Clinical Impression(s) from Imaging Studies Abdomen/Pelvis CT 06/16/23 20:45 IMPRESSION: 1. Recently ruptured left ovarian follicle with trace free pelvic fluid. Physiologic process with no additional follow-up recommended at this time. 2. Mild hepatomegaly. Electronically Signed: Marty Ruvalcaba MD at 21:16 EDT , Discharge Plan Triage Chief Complaint: Abd Pain ED Provider: Himanshu Humphrey Dx/Rx/DC Orders Clinical Impression: Abdominal pain, right lower quadrant Instructions: Abdominal Pain Prescriptions: New ondansetron 4 mg tablet,disintegrating 4 mg PO Q8H PRN (Reason: nausea and vomiting) 3 Days Qty: 9 0RF No Action dicyclomine 20 mg tablet 20 mg PO BID Qty: 60 2RF Rx Instructions: Take 30 minutes for meals. Okay to take before lunch and supper or breakfast and lunch albuterol sulfate 1 INHALER inhaler 90 mcg PO PRN PRN (Reason: Asthma) Zyrtec 10 mg Capsule 10 mg PO DAILY sertraline 100 mg tablet 100 mg PO DAILY multivitamin 1 tab PO/SL DAILY hydroxyzine pamoate 25 mg Capsule 25 mg PO BID PRN (Reason: ANXIETY) Primary Care Provider: Marty Christensen Referrals: Marty Christensen, DO [Primary Care Provider] - Activity Restrictions/Additional Instructions: Thank you for trusting us with your care today! Please take Tylenol (2 pills, 650 mg), ibuprofen (2 pills, 400 mg) every 6 hours as needed for pain and fever control. Please take Zofran as needed for nausea control. Please return to the emergency department if your symptoms change or worsen. Please follow with your primary care physician for further outpatient evaluation and management. Disposition Disposition: Home, Self Care Discharge Date/Time: 06/16/23 21:52
--- NOTE | 2023-06-16 20:45 | CT_ITS ---
INDICATION: RLQ abdominal pain r/o appendicitis EXAMINATION: CT Abdomen And Pelvis W/ Contrast Injection TECHNIQUE: Helically acquired images were obtained of the abdomen and pelvis following IV contrast. 2-D reconstructions reviewed. A radiation dose optimization technique was used for this scan. IV Contrast dosage and agent: 100 cc [id number] Oral contrast: None. COMPARISON: None. FINDINGS: LOWER CHEST: No acute findings within the imaged lung bases. Heart size within normal limits. LIVER: Slightly enlarged liver measures 18.5 cm craniocaudal length. No discrete mass. GALLBLADDER AND BILIARY TREE: Status post cholecystectomy. No significant biliary ductal dilation. PANCREAS: No discrete mass or peripancreatic edema. SPLEEN: Normal size without concerning lesion. ADRENAL GLANDS: Unremarkable. KIDNEYS AND URETERS: Normal renal size and position. No perinephric edema or hydronephrosis. No concerning lesion. PERITONEUM: Trace free pelvic fluid. No peritoneal free air detected. RETROPERITONEUM: No retroperitoneal mass or pathologic fluid collection. BOWEL: Normal appendix medial to cecum within right lower quadrant. No bowel obstruction or significant bowel thickening. No focal inflammatory change. LYMPH NODES: No enlarged mesenteric or retroperitoneal lymph nodes. VESSELS: No acute findings. No abdominal aortic aneurysm. URINARY BLADDER: Unremarkable as visualized. REPRODUCTIVE ORGANS: Rim-enhancing, partially involuted 1.3 cm left ovarian follicle with adjacent trace free fluid. Tampon in place. ABDOMINAL WALL: No acute findings or significant hernia defect. BONES: Intact with no suspicious osseous lesion. CT/Abdomen/Pelvis W IV Cont ONLY IMPRESSION: 1. Recently ruptured left ovarian follicle with trace free pelvic fluid. Physiologic process with no additional follow-up recommended at this time. 2. Mild hepatomegaly. Electronically Signed: Marty Ruvalcaba MD at 21:16 EDT ,
[2023-06-16 20:50] LABS: Bacteria 0 SEEN /hpf (None Seen); Mucous, Urine 0 SEEN /hpf (<or=2+); Red Blood Cells-Urine 0 SEEN /hpf (0-5); White Blood Cells 0 SEEN /hpf (0-5)
[2023-06-16 20:57] LABS: Color, Urine Yellow (Yellow); Glucose, Dipstick Normal (Normal); Ketone-Dipstick Negative (Negative); Leukocyte Esterase-Dipstick Negative /ul (Negative); Nitrite-Dipstick Negative (Negative); Occult Blood-Urine Negative /ul (Negative); Protein-Dipstick Negative (Negative); Specific Gravity, Urine 1.005 (1.002-1.030); Urine Bilirubin Dipstick Negative (Negative); Urine Clarity Clear (Clear); Urine Urobilinogen Normal (Normal)
[2023-06-16] MEDS: 0.9% Normal Saline 1,000 ML 999 ML IV (21:01)
--- NOTE | 2023-06-16 21:06 | ED.RN ---
PT OFFERED IV TORADOL FOR PAIN. PT STATES I FEEL OKAY RIGHT NOW. PT EDUCATED TO CALL OUT IF PAIN WORSENS AND IF SHE WANTS PAIN MEDICATIONS.
[2023-06-16 21:07] VITALS: BP 120/55; PULSE 66; RESP 18; O2SAT 98
[2023-06-16 21:14] LABS: Squamous Epithelial Cells - UA 0-5 SEEN /hpf (5-10)
[2023-06-16 21:49] VITALS: BP 114/69; PULSE 60; RESP 18; O2SAT 98
== END 2023-06-16 21:52 | disposition home or self-care (01) ==
PROVIDERS: Emergency Provider Emergency Medicine; PCP Family Medicine; Visit Provider Emergency Medicine
DX: R10.31 Right lower quadrant pain (principal)
CPT/HCPCS: 74177; 80053; 81001; 84703; 85025; 96360; 99283; J7030; Q9967; A4216

== ENCOUNTER → 2023-09-22 | Outpatient (CLI) | payer OTHER, SELFPAY ==
[2023-09-22 13:49] LABS: T4 Free Direct 0.81 ng/dL (0.76-1.46); Thyroid Stim Hormone (TSH) 1.94 uIU/mL (0.358-3.74)
[2023-09-26 15:07] LABS: Thyroglobulin Antibody < 1.0 IU/mL (0.0-0.9); Thyroid Peroxidase AB 19 IU/mL (0-34)
== END | disposition home or self-care (01) ==
PROVIDERS: PCP Family Medicine; Referring Provider Family Medicine; Visit Provider Family Medicine
DX: R79.89 Other specified abnormal findings of blood chemistry (principal); H05.20 Unspecified exophthalmos; E07.9 Disorder of thyroid, unspecified
CPT/HCPCS: 36415; 84439; 84443; 86376; 86800

== ENCOUNTER → 2023-11-11 | Outpatient (CLI) | payer OTHER, SELFPAY ==
--- OUTSIDE RECORDS SUMMARY | 2023-11-11 18:21 | XMS RPT_ITS | CCD ---
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 Serena Rodriguez Primary Care Unavailtwin talamantes UNKNOWN, PCP Referring Unavailable Dr. Serena Christensen Primary Care Unavaila Ms. Kumar Hawk Attending Unav ailable Serena Christensen DO Primary Care Provider SERENA CHRISTENSEN Primary Care Unavailable SERENA CHRISTENSEN Primary Care Unavailable SERENA CHRISTENSEN Primary Care Unavailable BARBY FIGUEREDO Attending Unavailable SERENA CHRISTENSEN Primary Care Unavailable EDWIN BURCH Referring Unavailable EDWIN BURCH Attending Unavailable SERENA CHRISTENSEN Primary Care Unavailable EDWIN BURCH Attending Unavailable Medications Current Medications Medication Drug Class(es) Dates Sig (Normalized) Sig (Original) amoxicillin 875 mg / clavulanate 125 mg oral tablet (1 source) Penicillin-class Antibacterial Start: 05-04-2022 End: 05-11-2022 take 1 tablet by mouth twice daily amoxicillin-clav ulanic acid (AUGMENTIN) 875-125 mg per tablet Indications: Sinus pressure Take 1 tablet by mouth twice daily for 7 days. 14 tablet 0 05/04/2022 05/11/2022 Active Completed/Discontinued Medications Medication Drug Class(es) Dates Sig (Normalized) Sig (Original) [id number] 200 actuat albuterol 0.09 mg/actuat metered dose inhaler (8 sources) beta2-Adrenergic Agonist Start: 01-06-2023 take 2 puff(s) by inhalation every six hours as needed for wheezing albuterol HFA (PROVENTIL HFA, VENTOLIN HFA) 90 mcg/actuation inhaler Indications: Viral bronchitis Inhale 2 Puffs as instructed every 6 hours as needed for wheezing/shortnes s of breath. 1 Each 0 01/06/2023 Active Problems Active Problems Problem Classification Problem Date Documented Da te Episodic/Chronic Abdominal pain (11 sources) Finding of sensation of abdomen; Translations: [Abdominal pain, unspecified site] Onset: 3 Episodic Acute bronchitis (1 source) Viral bronchitis; Translations: [Acute bronchitis due to other specified organisms] Episodic Contraceptive and procreative management (3 sources) Patient encounter status; Translations: [Encounter for insertion of intrauterine contraceptive device] 06-29-2023 Episodic Deficiency and other anemia (7 sources) Beta thalassemia; Translations: [Beta thalassemia] Onset: 04-14-2021 Chronic Esophageal disorders (4 sources) Gastroesophageal reflux disease; Translations: [Esophageal reflux] Chronic Menstrual disorders (1 source) Break-through bleeding; Translations: [Excessive and frequent menstruation with irregular cycle] 08-17-2023 Chronic Other female genital disorders (1 source) Abnormal uterine bleeding; Translations: [Abnormal uterine and vaginal bleeding, unspecified] 08-17-2023 Chronic Other female genital disorders (1 source) Abnormal uterine and vaginal bleeding, unspecified; Translations: [Abnormal uterine bleeding (AUB)] Onset: 3 Chronic Other gastrointestinal disorders (4 sources) Abdominal bloating; Translations: [Flatulence, eructation, and gas pain] Episodic Other gastrointestinal disorders (4 sources) Constipation alternates with diarrhea; Translations: [Other symptoms involving digestive system] Episodic Other gastrointestinal disorders (4 sources) Excessive flatus; Translations: [Flatulence, eructation, and gas pain] Episodic Other upper respiratory disease (1 source) Nasal sinus problem; Translations: [Other specified disorders of nose and nasal sinuses] Episodic Other upper respiratory infections (2 sources) Acute upper respiratory infection; Translations: [Acute upper respiratory infection, unspecified] Episodic Past or Other Problems Problem Classification Problem Date Documented Date Episodic/Chronic Nausea and vomiting (7 sources) Nausea; Translations: [Nausea] Onset: 05-12-2021 05-12-2021 Episodic Residual codes; unclassified (7 sources) Family history of malignant melanoma; Translations: [Family history of malignant neoplasm of other organs or systems] Onset: 12-21-2016 12-21-2016 Episodic Residual codes; unclassified (7 sources) FH: Congenital heart disease; Translations: [Family history of other congenital malformations, deformations and chromosomal abnormalities] Onset: 04-09-2021 04-09-2021 Episodic Residual codes; unclassified (7 sources) H/O: previous delivery by vacuum extraction; Translations: [Personal history of other complications of , childbirth and the puerperium] Onset: 06-12-2021 06-12-2021 Episodic Screening and history of mental health and substance abuse codes (7 sources) H/O: anxiety state; Translations: [Personal history of other mental and behavioral disorders] Onset: 05-28-2019 04-09-2021 Episodic Viral infection (7 sources) Gammaherpesviral mononucleosis; Translations: [Gammaherpesviral mononucleosis without complication] Onset: 10-25-2016 10-25-2016 Episodic Results Test Name Value Interpretation Reference Range Facil it Vital Signs Date Time Vital Sign Value Performing Clinician Facility 08-17-2023 15:56-0400 Body weight 92.99 kg Barby Figueredo APRN.CNDaniela Work Phone: [facility] 08-17-2023 15:56-0400 Diastolic blood pressure 64 mm[Hg] Barby Figueredo ROUTE SPECIALIST.CNM Work Phone: [facility] 08-17-2023 15:56-0400 Systolic blood pressure 116 mm[Hg] Barby Figueredo ROUTE SPECIALIST.CNM Work Phone: [facility] 07-29-2023 14:21-0400 Body weight 92.53 kg Edwin Burch MD Work Phone: [facility] 07-29-2023 14:21-0400 Diastolic blood pressure 68 mm[Hg] Edwin Burch MD Work Phone: [facility] 07-29-2023 14:21-0400 Systolic blood pressure 114 mm[Hg] Edwin Burch MD Work Phone: [facility] 06-29-2023 15:37-0400 Body weight 92.53 kg Edwin Burch MD Work Phone: [facility] 06-29-2023 15:37-0400 Diastolic blood pressure 66 mm[Hg] Edwin Burch MD Work Phone: [facility] 06-29-2023 15:37-0400 Systolic blood pressure 124 mm[Hg] Edwin Burch MD Work Phone: [facility] 02-09-2023 11:56-0400 Body height 167.64 cm Serena A Amparo Work Phone: [facility] DO Work Phone: 02-09-2023 11:56-0400 Body mass index (BMI) [Ratio] 31.96 kg/m2 Serena A Amparo Work Phone: [facility] DO Work Phone: 02-09-2023 11:56-0400 Body surface area Derived from formula 1.99 m2 Serena A Amparo Work Phone: [facility] DO Work Phone: 02-09-2023 11:56-0400 Body weight 89.81 kg Serena A Amparo Work Phone: [facility] DO Work Phone: 02-09-2023 11:56-0400 Diastolic blood pressure 78 mm[Hg] Serena A Amparo Work Phone: [facility] DO Work Phone: 02-09-2023 11:56-0400 Respiratory rate 16 /min Serena A Amparo Work Phone: [facility] DO Work Phone: 02-09-2023 11:56-0400 Systolic blood pressure 115 mm[Hg] Serena A Amparo Work Phone: [facility] DO Work Phone: 01-06-2023 19:13-0400 Body temperature 98.49 [degF] Claudette Praisler-Wood ROUTE SPECIALIST.BRUSH POLISHER Work Phone: [facility] 01-06-2023 19:13-0400 Body weight 90.99 kg Claudette Praisler-Wood ROUTE SPECIALIST.BRUSH POLISHER Work Phone: [facility] 01-06-2023 19:13-0400 Diastolic blood pressure 74 mm[Hg] Claudette Praisler-Wood ROUTE SPECIALIST.BRUSH POLISHER Work Phone: [facility] 01-06-2023 19:13-0400 Heart rate 99 /min Claudette Praisler-Wood ROUTE SPECIALIST.BRUSH POLISHER Work Phone: [facility] 01-06-2023 19:13-0400 Respiratory rate 21 /min Claudette Praisler-Wood ROUTE SPECIALIST.BRUSH POLISHER Work Phone: [facility] 01-06-2023 19:13-0400 SaO2% (BldA) [Mass fraction] 98 % Claudette Praisler-Wood ROUTE SPECIALIST.BRUSH POLISHER Work Phone: [facility] 01-06-2023 19:13-0400 Systolic blood pressure 118 mm[Hg] Claudette Praisler-Wood ROUTE SPECIALIST.BRUSH POLISHER Work Phone: [facility] 05-04-2022 07:04-0400 Body temperature 97.2 [degF] Edy Parrish ROUTE SPECIALIST.BRUSH POLISHER Work Phone: [facility] 05-04-2022 07:04-0400 Body weight 88.63 kg Edy Parrish ROUTE SPECIALIST.BRUSH POLISHER Work Phone: [facility] 05-04-2022 07:04-0400 Diastolic blood pressure 70 mm[Hg] Edy Francois ROUTE SPECIALIST.BRUSH POLISHER Work Phone: [facility] 05-04-2022 07:04-0400 Heart rate 79 /min Edy Francois ROUTE SPECIALIST.BRUSH POLISHER Work Phone: [facility] 05-04-2022 07:04-0400 Respiratory rate 18 /min Edy Parrish APRN.CNP Work Phone: [facility] 05-04-2022 07:04-0400 SaO2% (BldA) [Mass fraction] 97 % Edy Parrish APRN.CNP Work Phone: [facility] 05-04-2022 07:04-0400 Systolic blood pressure 124 mm[Hg] Edy Parrish APRN.CNP Work Phone: [facility] Encounters Encounter Date Encounter Type Care Provider Facility Start: 08-17-2023 End: 08-17-2023 Patient encounter procedure Barby Figueredo APRN.CNM Work Phone: OB/Gynecology Procedures Date Procedure Procedure Detail Performing Clinician Start: 08-17-2023 Urine test visual color cmprsn nguyễn Figueredo APRN.CNM Work Phone: Start: 07-29-2023 Urine test visual color cmprsn meths Edwin Burch MD Work Phone: Start: 01-06-2023 STREP A MOLECULAR (POC) Claudette Lima APRN.CNP Work Phone: Start: 06-02-2016 Adult depression screening assessment Edy Parrish APRN.CNP Work Phone: Plan of Treatment Date Care Activity Detail Author Start: 09-28-2031 Urine microalbumin profile [facility] Start: 04-14-2024 PAP TESTING PAP TESTING [facility] Start: 06-17-2023 Covid-19 Vaccine ( season) Covid-19 Vaccine () [facility] Start: 06-17-2023 Influenza vaccination [facility] Start: 10-17-2022 DEPRESSION ASSESSMENT DEPRESSION ASSESSMENT [facility] Start: 06-17-2022 Influenza vaccination INFLUENZA (#1) [facility] Start: 06-16-2022 COVID-19 VACCINE (3 - Booster for Pfizer series) COVID-19 VACCINE (3 - Booster for Pfizer series) [facility] Start: 03-11-2022 COVID-19 VACCINE (3 - Booster for Pfizer series) COVID-19 VACCINE (3 - Booster for Pfizer series) [facility] Start: 03-11-2022 COVID-19 VACCINE (3 - Pfizer series) COVID-19 VACCINE (3 - Pfizer series) [facility] Start: 06-02-2017 Adult depression screening assessment DEPRESSION SCREENING [facility] Start: 2015 SHINGRIX VACCINE (1 of 2) SHINGRIX VACCINE (1 of 2) [facility] Start: 2010 PEDS TO ADULT TRANSITION ANNUAL ASSESSMENT PEDS TO ADULT TRANSITION ANNUAL ASSESSMENT [facility] Start: 2008 PEDS TO ADULT TRANSITION INITIAL DISCUSSION PEDS TO ADULT TRANSITION INITIAL DISCUSSION [facility] Start: 2007 HPV VACCINE (1 - 2-dose series) HPV VACCINE (1 - 2-dose series) [facility] Start: 2002 PNEUMOCOCCAL (1 - PCV) PNEUMOCOCCAL (1 - PCV) [facility] Start: 2002 Pneumococcal vaccination Pneumococcal Vaccine (1 - PCV) [facility] Start: 1996 HEPATITIS B (1 of 3 - 3-dose series) HEPATITIS B (1 of 3 - 3-dose series) [facility] Start: 1996 Hepatitis B Vaccine (1 of 3 - 3-dose series) Hepatitis B Vaccine (1 of 3 - 3-dose series) [facility] Influenza virus A an d B RNA and SARS-CoV-2 (COVID-19) N gene panel - Respiratory specimen by ALIREZA with probe detection COVID WITH FLUA+B, ROUTINE Microbiology Routine URI, acute Ordered: 05/04/[address] [facility] Work Phone: Immunizations Immunization Date Immunization Notes Care Provider Fa [facility] 09-03-2022 influenza virus vaccine, unspecified formulation Edwin Burch MD Work Phone: [facility] 09-28-2021 tetanus toxoid, redu nano diphtheria toxoid, and acellular pertussis vaccine, adsorbed Edy Francois ROUTE SPECIALIST.BRUSH POLISHER Work Phone: [facility] Work Phone: 07-28-2021 influenza, injectabl e, quadrivalent, contains preservative Edy Francois ROUTE SPECIALIST.BRUSH POLISHER Work Phone: [facility] Payers Date Payer Category Payer Private Health Insurance [facility] [employer] [id number] 2022-Present [phone] [address] [place] [address] HMO 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 1996 Unknown [id number] 1996 Unknown [id number] Unknown [facility] Social History Date Type Detail Facility Start: 01-30-2016 End: 01-06-2023 Tobacco smoking status NHIS Never smoked tobacco [facility] Start: 01-30-2016 End: 01-06-2023 Tobacco use and exposure Smokeless tobacco non-user [facility] Start: 05-04-2022 End: 01-06-2023 Alcohol intake Ex-drinker (finding) [facility] Start: 04-09-2021 Education 15 [facility] Start: 1996 Sex Assigned At Not on file [facility] Start: 04-24-2022 End: 05-04-2022 Exposure to SARS-CoV-2 (event) Not sure [facility] Work Phone: Start: 01-06-2023 End: 06-29-2023 History of Social function [facility] Start: 01-06-2023 End: 06-29-2023 Tobacco use panel [facility] National Score (1-10 0), lower number is lower risk Not on file [facility] Start: 06-29-2023 End: 08-17-2023 Alcohol intake Current drinker of alcohol (finding) [facility] Start: 06-29-2023 Alcohol Comment social [facility] Clinical Notes 05-28-2019 to 08-17-2023 Barby Figueredo APRN.CNM - 08/17/2023 3:36 PM EDTTelephone Encounter - Eliana Chavira RN - 08/17/2023 1:55 PM EDTTelephone Encounter - Edwin Burch MD - 08/17/2023 1:42 PM EDT Note Date & Type Note Facility 08-17-2023 Note HNO ID: [id number] Author: Barby Figueredo APRN.CNM Service: ? Author Type: Lime Sludge Mixer Type: Progress Notes Filed: 08/17/2023 4:49 PM Note Text: Sarah Hillman presents today for IUD check. She had a Mirena placed on 07/29/23. She has had spotting and heavy bleeding since placement. Started period 11 days ago and reports still has heavy bleeding today. Wearing Super size tampon and changing it every couple of hours. Here today to verify placement. REVIEW OF SYSTEMS: PAIN ASSESSMENT: Negative for pain, history of chronic pain, or current treatment for a chronic pain condition. Currently reports cramping GENERAL: No weight loss, malaise or fevers, Negative for malaise, fever PHOTO INTERN: SEE HPI NEURO: No history of headaches, syncope, paralysis, seizures or tremors PHYSICAL EXAMINATION: BP 116/64 Wt 205 lb (93.0kg) LMP 07/12/2023 ABDOMEN:soft, non-tender, and no masses, no hepatosplenomegaly EXTERNAL GENITALIA: Normal genitalia and Bartholins, Urethra, Sken'e normal CERVIX: smooth, no lesions, cervical motion tenderness: No, and IUD strings visualized. IUD strings visible. Small amount of old, dark brown blood in vaginal vault. No active bleeding from cervix. UTERUS: non-tender ADNEXA: negative for tenderness or masses IMPRESSION/PLAN: IUD correctly positioned. Patient counseled regarding monthly string check. Follow up for annual exam or sooner if needed. Barby Figueredo APRN.CNM [facility] 08-17-2023 History of Present illness Narrative Sarah Hillman presents today for IUD check. She had a Mirena placed on 07/29/23. She has had spotting and heavy bleeding since placement. Started period 11 days ago and reports still has heavy bleeding today. Wearing Super size tampon and changing it every couple of hours. Here today to verify placement. REVIEW OF SYSTEMS: PAIN ASSESSMENT: Negative for pain, history of chronic pain, or current treatment for a chronic pain condition. Currently reports cramping GENERAL: No weight loss, malaise or fevers, Negative for malaise, fever PHOTO INTERN: SEE HPI NEURO: No history of headaches, syncope, paralysis, seizures or tremors PHYSICAL EXAMINATION: BP 116/64 Wt 205 lb (93.0kg) LMP 07/12/2023 ABDOMEN:soft, non-tender, and no masses, no hepatosplenomegaly EXTERNAL GENITALIA: Normal genitalia and Bartholins, Urethra, Sken'e normal CERVIX: smooth, no lesions, cervical motion tenderness: No, and IUD strings visualized. IUD strings visible. Small amount of old, dark brown blood in vaginal vault. No active bleeding from cervix. UTERUS: non-tender ADNEXA: negative for tenderness or masses IMPRESSION/PLAN: IUD correctly positioned. Patient counseled regarding monthly string check. Follow up for annual exam or sooner if needed. Barby Figueredo APRN.CNM documented in this encounter [facility] 08-17-2023 Miscellaneous Notes Patient notified and voiced understanding. Appointments scheduled. Eliana Chavira RN Stat CBC before appointment. Schedule w/ CP at 345 to be seen today. do hcg when arrives. Thanks. Edwin Burch MD Patient called in to see if we had a response to her message. Explained RR seeing patients in the office today. Told patient with chest pain and shortness of breath she should be seen in the ED and she insists it's related to being sick and she is more concerned about her bleeding. Further triaged clots are size of quarter and still changing super tampons every couple hours. Advised patient that RR will review. Dayna Wolfe RN documented in this encounter [facility] 07-29-2023 Note HNO ID: [id number] Author: Edwin Burch MD Service: ? Author Type: Physician Type: Progress Notes Filed: 07/29/2023 2:37 PM Note Text: Sarah presents today for IUD insertion for contraception. Patient's last menstrual period was 06/14/2023. GC/chlamydia: Not done: no risk factors and/or patient declines screening test: negative Side effects including irregular bleeding were discussed with the patient. The patient understands that it should be removed in 8 years or sooner if the patient desires a . IUD source: office provided IUD lot #: [id number] Exp date: 07/16/2025 UNIVERSAL PROTOCOL / SAFETY CHECKLIST Procedure to be Performed: Mirena IUD insertion Sign In: A Moment of CARE was completed. Personnel directly involved with the procedure wore the appropriate PPE (Personal Protective Equipment). Patient/Surrogate Stated/Verified: PATIENT VERIFIED(optional for EMERGENT procedures): Patient name, Date of , Relevant allergies, and The intended procedure Time Out Communication: Intended patient and procedure match the source documents. Consent documented and matches the intended procedure. Implant(s) inserted: Correct implant(s) confirmed including size and side. and Expiration date(s) reviewed. Sign Out: SIGN OUT (optional for EMERGENT procedures): No specimen collected. All instruments, equipment, possible retained foreign bodies accounted for. Post-procedure follow-up management communicated and Plan of Care Visit completed when applicable. Edwin Burch M.D. The cervix was prepped with betadine. The uterus sounded to 8 cm and the uterus is Retroverted.. Using sterile technique, the Mirena IUD was inserted without difficulty and the string was cut to 2cm from the external os of the cervix. Patient tolerated procedure well. PLAN: Patient was advised to observe for signs and symptoms of infection including but not limited to fever, malodorous vaginal discharge and/or pain. The patient was told to check the string monthly for accurate placement. Bleeding expectations were reviewed. Follow up for next annual exam or sooner as needed. Edwin Burch MD [facility] 07-29-2023 Instructions Lizz Nicole Ma - 07/29/2023 1:56 PM EDT POST IUD INSTRUCTIONS You may have irregular bleeding during the first 3 months of use. You may have mild-severe cramping for the next 48 hours. You may use over the counter medication (Motrin, Tylenol) as needed. Your IUD must be removed or replaced based on the following table: IUD Type Removed or replaced within: Claudia 3 years Kyleena 5 years Mirena 8 years Paragard 10 years Call my office for signs/symptoms of infection such as severe cramping, fever, or unusual bleeding. Check for string placement as instructed by your doctor. If you have any additional questions, please contact the office. documented in this encounter [facility] 07-29-2023 History of Present illness Narrative Sarah presents today for IUD insertion for contraception. Patient's last menstrual period was 06/14/2023. GC/chlamydia: Not done: no risk factors and/or patient declines screening test: negative Side effects including irregular bleeding were discussed with the patient. The patient understands that it should be removed in 8 years or sooner if the patient desires a . IUD source: office provided IUD lot #: [id number] Exp date: 07/16/2025 UNIVERSAL PROTOCOL / SAFETY CHECKLIST Procedure to be Performed: Mirena IUD insertion Sign In: A Moment of CARE was completed. Personnel directly involved with the procedure wore the appropriate PPE (Personal Protective Equipment). Patient/Surrogate Stated/Verified: PATIENT VERIFIED(optional for EMERGENT procedures): Patient name, Date of , Relevant allergies, and The intended procedure Time Out Communication: Intended patient and procedure match the source documents. Consent documented and matches the intended procedure. Implant(s) inserted: Correct implant(s) confirmed including size and side. and Expiration date(s) reviewed. Sign Out: SIGN OUT (optional for EMERGENT procedures): No specimen collected. All instruments, equipment, possible retained foreign bodies accounted for. Post-procedure follow-up management communicated and Plan of Care Visit completed when applicable. Edwin Burch M.D. The cervix was prepped with betadine. The uterus sounded to 8 cm and the uterus is Retroverted.. Using sterile technique, the Mirena IUD was inserted without difficulty and the string was cut to 2cm from the external os of the cervix. Patient tolerated procedure well. PLAN: Patient was advised to observe for signs and symptoms of infection including but not limited to fever, malodorous vaginal discharge and/or pain. The patient was told to check the string monthly for accurate placement. Bleeding expectations were reviewed. Follow up for next annual exam or sooner as needed. Edwin Burch MD documented in this encounter [facility] 06-29-2023 Note HNO ID: [id number] Author: Edwin Burch MD Service: ? Author Type: Physician Type: Progress Notes Filed: 06/29/2023 5:03 PM Note Text: Sarah Hillman is a 28 year old who presents today for contraception. Patient's last menstrual period was 06/14/2023.. Went to ER on 06/16 for RLQ pain (went to [facility] who sent her to ER) - thought it was appendix but ruled out on CT. They told her to follow up here. Pain still there, but less noticeable. Waxes and wanes, described as a cramping sensation localized in the RLQ. Pain was intense in ED and improved over a couple of days. Had once many years ago bevore she had kids. Interested in learning more about options for control - mainly IUD vs minipill. Has heavy periods so not interested in copper IUD. Periods regular, lasting 6-7 days. Wants to minimize exogenous hormones. Has taken combination pill in the past. SUBJECTIVE Sexually active: Yes Method of control: condoms - used plan B on Tuesday when condom broke. Methods tried previously: oral contraceptives - combined pill, approximately 8 years ago and was on it for 2 years, tolerated well Patient currently interested in: oral contraceptives and Mirena IUD STudent entered above data, I reviewed and edited as needed. Remainder of note and exam performed by me. Edwin Burch MD Date of last test: Not applicable Relevant Past Medical History: No relevant past medical history OBJECTIVE: General Appearance: Well appearing, alert, in no acute distress, well-hydrated, well nourished. ASSESSMENT/PLAN: Abdominal/pelvic pain, resolved spontaneously. May have been ovarian cyst. If recurs check pelvic uS contraceptive management - reviewed r/b/a to various options, questions answered. Desires IUD insertion. Scheduled. D/w her bleeding expectations and expectations at insertion. Edwin Burch MD [facility] 06-29-2023 History of Present illness Narrative Sarah Hillman is a 28 year old who presents today for contraception. Patient's last menstrual period was 06/14/2023.. Went to ER on 06/16 for RLQ pain ([facility] sent her to ER) - thought it was appendix but ruled out on CT. They told her to follow up here. Pain still there, but less noticeable. Waxes and wanes, described as a cramping sensation localized in the RLQ. Pain was intense in ED and improved over a couple of days. Had once many years ago bevore she had kids. Interested in learning more about options for control - mainly IUD vs minipill. Has heavy periods so not interested in copper IUD. Periods regular, lasting 6-7 days. Wants to minimize exogenous hormones. Has taken combination pill in the past. SUBJECTIVE Sexually active: Yes Method of control: condoms - used plan B on Tuesday when condom broke. Methods tried previously: oral contraceptives - combined pill, approximately 8 years ago and was on it for 2 years, tolerated well Patient currently interested in: oral contraceptives and Mirena IUD STudent entered above data, I reviewed and edited as needed. Remainder of note and exam performed by me. Edwin Burch MD Date of last test: Not applicable Relevant Past Medical History: No relevant past medical history OBJECTIVE: General Appearance: Well appearing, alert, in no acute distress, well-hydrated, well nourished. ASSESSMENT/PLAN: Abdominal/pelvic pain, resolved spontaneously. May have been ovarian cyst. If recurs check pelvic uS contraceptive management - reviewed r/b/a to various options, questions answered. Desires IUD insertion. Scheduled. D/w her bleeding expectations and expectations at insertion. Edwin Burch MD documented in this encounter [facility] 06-17-2023 Miscellaneous Notes Keep appt 06/23. ED records reviewed. Giuseppe Mayer MD Please see pt's mychart message. ED reports printed for your review and advise if appointment date and time is ok or if she needs to be seen sooner. Denise Delgadillo LPN documented in this encounter [facility] 01-09-2023 History of Present illness Narrative Patient presents to the GI clinic with a constellation of GI complaints that are chronic, but have worsened over the past 1 month.Patient reports longstanding history of bloating, excessive flatus, lower abdominal cramping, alternating constipation and diarrhea.Status post laparoscopic cholecystectomy in August, for complaints of right upper quadrant pain that has resolved after her surgery.No previous endoscopic investigations.No family history of colon cancer or IBD.No melena or hematochezia. However, she has been experiencing increased mucus on occasion.Her weight and appetite are stable.Rare NSAID use. Occasional alcohol use. She is a non-smoker.Her bowel movements vary. At times she can go 1 to 2 days without a bowel movement. Will occasionally experience loose/liquid stools with mucus.Denies straining. Typically feels fully evacuated. No laxative use.No recent antibiotic use.Her diet is varied. She does drink enough water throughout the day. 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 Follows closely with [employer] with increased symptoms over the past month. Epigastric pain/fullness. Has tried Tums with suboptimal response. No nausea or dysphagia.Reports increased fatigue and tiredness recently.No chest pain, shortness of breath, palpitations or syncope. [facility] [address] DO Work Phone: 01-06-2023 Note HNO ID: [id number] Author: Claudette Lima APRN.[employer] Service: ? Author Type: Nurse Practitioner Type: Progress Notes Filed: 01/06/2023 7:45 PM Note Text: Subjective Cough Associated symptoms include chills, sore throat, myalgias and shortness of breath. Sarah Hillman is a 27 year old female who presents with 6 days of cough, sore throat, chest congestion. 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 She had chills and body aches the first 2 days of the illness but those have resolved. Home COVID tests x 2 were negative. She has been taking Mucinex, tylenol, and allergy medication at home. She has not had a fever. Review of Systems Constitutional: Positive for chills. Negative for fever. HENT: Positive for congestion and sore throat. Respiratory: Positive for cough and shortness of breath. Cardiovascular: Negative. Gastrointestinal: Positive for diarrhea. Negative for nausea and vomiting. Musculoskeletal: Positive for myalgias. BP 118/74 Pulse 99 Temp 36.9 ?C (98.5 ?F) Resp 21 Wt 91 kg (200 lb 9.6 oz) LMP 04/11/2022 SpO2 98% BMI 32.05 kg/m? PAST MEDICAL HISTORY Diagnosis Date Anemia anxiety Asthma Thalassemia, beta (HCC) PAST SURGICAL HISTORY Procedure Laterality Date EXTRACTION, ERUPTED TOOTH OR EXPOSED ROOT (ELEVATION AND/OR FORCEPS REMOVAL) 2012 ALLERGIES Patient has no known allergies. MEDICATIONS hydrOXYzine HCl (ATARAX) 25 mg tablet cetirizine HCl (ZYRTEC ORAL) Take by mouth. sertraline (ZOLOFT) 100 mg tablet Now taking 125 mg daily Tftayrjy-Uq-Dsp-Fe-FA tab Take 1 tablet by mouth. predniSONE (DELTASONE) 20 mg tablet Take 2 tablets by mouth once daily for 4 days. Take daily with food. albuterol HFA (PROVENTIL HFA, VENTOLIN HFA) 90 mcg/actuation inhaler Inhale 2 Puffs as instructed every 6 hours as needed for wheezing/shortness of breath. Inhalational Spacing Device 1 Device one time only for 1 dose. FAMILY HISTORY Problem Relation Age of Onset Heart Mother Asthma Father Cancer Father oral cancer Asthma Sister other (other) Sister No Known Problems Sister other (lactose intolerance) Brother Dementia Maternal Grandmother Diabetes Maternal Grandmother Heart Attack Maternal Grandmother Cancer Maternal Grandfather Pancreatic Cancer Paternal Grandmother skin Cancer Paternal Grandfather lung No Known Problems Daughter Social History Tobacco Use Smoking status: Never Smokeless tobacco: Never Vaping Use Vaping Use: Never used Substance Use Topics Alcohol use: Not Currently Drug use: No Objective Physical Exam Vitals and nursing note reviewed. Constitutional: Appearance: Normal appearance. HENT: Right Ear: Tympanic membrane, ear canal and external ear normal. Left Ear: Tympanic membrane, ear canal and external ear normal. Nose: Nose normal. Mouth/Throat: Pharynx: Uvula midline. No oropharyngeal exudate or posterior oropharyngeal erythema. Cardiovascular: Rate and Rhythm: Normal rate and regular rhythm. Heart sounds: Normal heart sounds. Pulmonary: Effort: Pulmonary effort is normal. No respiratory distress. Breath sounds: Examination of the right-upper field reveals wheezing. Examination of the left-upper field reveals wheezing. Examination of the right-lower field reveals wheezing. Examination of the left-lower field reveals wheezing. Wheezing present. No rales. Musculoskeletal: Cervical back: Neck supple. Lymphadenopathy: Cervical: No cervical adenopathy. Skin: General: Skin is warm and dry. Findings: No erythema or rash. Neurological: Mental Status: She is alert. ASSESSMENT/PLAN: 1. Sore throat - ICD9: 462, ICD10: J02.9 (primary diagnosis) - suspect viral - Alere Strep Test negative, no culture pending - Discussed supportive care treatment with fluids, rest and analgesia. - STREP A MOLECULAR (POC) 2. Viral bronchitis - ICD9: 466.0, ICD10: J20.8 - PREDNISONE 20 MG TABLET - ALBUTEROL SULFATE HFA 90 MCG/ACTUATION AEROSOL INHALER - Follow-up with your PCP in 3-5 days if symptoms have not improved or sooner if symptoms worsen - Discussed red flags and need for immediate medical evaluation if any occur. - Discussed supportive care treatment with fluids, rest and analgesia. - Discussed expected course of illness Claudette Lima APRN.[facility] 01-06-2023 History of Present illness Narrative Subjective Cough Associated symptoms include chills, sore throat, myalgias and shortness of breath. Sarah Hillman is a 27 year old female who presents with 6 days of cough, sore throat, chest congestion. 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 She had chills and body aches the first 2 days of the illness but those have resolved. Home COVID tests x 2 were negative. She has been taking Mucinex, tylenol, and allergy medication at home. She has not had a fever. Review of Systems Constitutional: Positive for chills. Negative for fever. HENT: Positive for congestion and sore throat. Respiratory: Positive for cough and shortness of breath. Cardiovascular: Negative. Gastrointestinal: Positive for diarrhea. Negative for nausea and vomiting. Musculoskeletal: Positive for myalgias. BP 118/74 Pulse 99 Temp 36.9 C (98.5 F) Resp 21 Wt 91 kg (200 lb 9.6 oz) LMP 04/11/2022 SpO2 98% BMI 32.05 kg/m PAST MEDICAL HISTORY Diagnosis Date Anemia anxiety Asthma Thalassemia, beta (HCC) PAST SURGICAL HISTORY Procedure Laterality Date EXTRACTION, ERUPTED TOOTH OR EXPOSED ROOT (ELEVATION AND/OR FORCEPS REMOVAL) 2012 ALLERGIES Patient has no known allergies. MEDICATIONS hydrOXYzine HCl (ATARAX) 25 mg tablet cetirizine HCl (ZYRTEC ORAL) Take by mouth. sertraline (ZOLOFT) 100 mg tablet Now taking 125 mg daily Wefgxpof-Mi-Gdo-Fe-FA tab Take 1 tablet by mouth. predniSONE (DELTASONE) 20 mg tablet Take 2 tablets by mouth once daily for 4 days. Take daily with food. albuterol HFA (PROVENTIL HFA, VENTOLIN HFA) 90 mcg/actuation inhaler Inhale 2 Puffs as instructed every 6 hours as needed for wheezing/shortness of breath. Inhalational Spacing Device 1 Device one time only for 1 dose. FAMILY HISTORY Problem Relation Age of Onset Heart Mother Asthma Father Cancer Father oral cancer Asthma Sister other (other) Sister No Known Problems Sister other (lactose intolerance) Brother Dementia Maternal Grandmother Diabetes Maternal Grandmother Heart Attack Maternal Grandmother Cancer Maternal Grandfather Pancreatic Cancer Paternal Grandmother skin Cancer Paternal Grandfather lung No Known Problems Daughter Social History Tobacco Use Smoking status: Never Smokeless tobacco: Never Vaping Use Vaping Use: Never used Substance Use Topics Alcohol use: Not Currently Drug use: No Objective Physical Exam Vitals and nursing note reviewed. Constitutional: Appearance: Normal appearance. HENT: Right Ear: Tympanic membrane, ear canal and external ear normal. Left Ear: Tympanic membrane, ear canal and external ear normal. Nose: Nose normal. Mouth/Throat: Pharynx: Uvula midline. No oropharyngeal exudate or posterior oropharyngeal erythema. Cardiovascular: Rate and Rhythm: Normal rate and regular rhythm. Heart sounds: Normal heart sounds. Pulmonary: Effort: Pulmonary effort is normal. No respiratory distress. Breath sounds: Examination of the right-upper field reveals wheezing. Examination of the left-upper field reveals wheezing. Examination of the right-lower field reveals wheezing. Examination of the left-lower field reveals wheezing. Wheezing present. No rales. Musculoskeletal: Cervical back: Neck supple. Lymphadenopathy: Cervical: No cervical adenopathy. Skin: General: Skin is warm and dry. Findings: No erythema or rash. Neurological: Mental Status: She is alert. ASSESSMENT/PLAN: 1. Sore throat - ICD9: 462, ICD10: J02.9 (primary diagnosis) - suspect viral - Alere Strep Test negative, no culture pending - Discussed supportive care treatment with fluids, rest and analgesia. - STREP A MOLECULAR (POC) 2. Viral bronchitis - ICD9: 466.0, ICD10: J20.8 - PREDNISONE 20 MG TABLET - ALBUTEROL SULFATE HFA 90 MCG/ACTUATION AEROSOL INHALER - Follow-up with your PCP in 3-5 days if symptoms have not improved or sooner if symptoms worsen - Discussed red flags and need for immediate medical evaluation if any occur. - Discussed supportive care treatment with fluids, rest and analgesia. - Discussed expected course of illness Claudette Lima APRN.JOHNNY documented in this encounter [facility] 01-06-2023 Instructions Claudette Lima APRN.CNP - 01/06/2023 7:26 PM EDT ASSESSMENT/PLAN: 1. Sore throat - ICD9: 462, ICD10: J02.9 (primary diagnosis) - suspect viral - Alere Strep Test negative, no culture pending - Discussed supportive care treatment with fluids, rest and analgesia. - STREP A MOLECULAR (POC) 2. Viral bronchitis - ICD9: 466.0, ICD10: J20.8 - PREDNISONE 20 MG TABLET - ALBUTEROL SULFATE HFA 90 MCG/ACTUATION AEROSOL INHALER - Follow-up with your PCP in 3-5 days if symptoms have not improved or sooner if symptoms worsen - Discussed red flags and need for immediate medical evaluation if any occur. - Discussed supportive care treatment with fluids, rest and analgesia. - Discussed expected course of illness Claudette Lima APRN.CNP ACUTE BRONCHITIS: You have acute bronchitis. This means the airway passages in your lungs are inflamed. Bronchitis may be caused by viruses or bacteria. Inhaling cigarette smoke will always make it worse. Exposure to irritating chemicals or second hand smoke as well as allergies can contribute to bronchitis. Repeat episodes of bronchitis may cause lifelong lung problems. Acute bronchitis is usually treated with rest, fluids, cough medicine, and possibly antibiotics or inhaled medicine to open up the small airways. It is very important that you avoid smoke and drink increased amounts of fluids. A cool air vaporizer can help thin bronchial secretions. This makes it easier to cough and clear your chest. If you are a cigarette smoker, consider using nicotine gum or skin patches to help you withdraw. Recovery from bronchitis is often slow, but you should start feeling better after 2-3 days of treatment. Please call your doctor or return here if you have any of the following symptoms: Increased fever, chills, or chest pain. Severe shortness of breath or bloody sputum. Do not improve after 3 days of proper treatment. documented in this encounter [facility] 05-04-2022 History of Present illness Narrative Subjective HPI HPI Sarah Hillman is a 26 year old female who presents today for CC of cough, sob, h/a, st. This started 2 days ago. Has tried otc medication for relief. Symptoms are worsened by nothing. 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 Denies cp, ear pain, n/v/d. .Patient presents with: Headache: pain rated 6, x2 days Cough: denied chest pain, reported intermittent SOB PAST MEDICAL HISTORY Diagnosis Date Anemia anxiety Asthma Thalassemia, beta (HCC) PAST SURGICAL HISTORY Procedure Laterality Date EXTRACTION, ERUPTED TOOTH OR EXPOSED ROOT (ELEVATION AND/OR FORCEPS REMOVAL) 2012 ALLERGIES Patient has no known allergies. MEDICATIONS cetirizine HCl (ZYRTEC ORAL) Take by mouth. sertraline (ZOLOFT) 100 mg tablet Ysxmlojj-Bg-Ufe-Fe-FA ( VITAMIN) tab Take 1 tablet by mouth. albuterol (PROVENTIL) 2.5 mg /3 mL (0.083 %) nebulizer solution Use 3 mL via nebulizer every 6 hours as needed for Wheezing/Shortness of Breath. 1 vial contains 3 ml. amoxicillin-clavulanic acid (AUGMENTIN) 875-125 mg per tablet Take 1 tablet by mouth twice daily for 7 days. predniSONE (DELTASONE) 20 mg tablet Take 2 tablets by mouth once daily for 5 days. FAMILY HISTORY Problem Relation Age of Onset Heart Mother Asthma Father Cancer Father oral cancer Asthma Sister other (other) Sister No Known Problems Sister other (lactose intolerance) Brother Dementia Maternal Grandmother Diabetes Maternal Grandmother Heart Attack Maternal Grandmother Cancer Maternal Grandfather Pancreatic Cancer Paternal Grandmother skin Cancer Paternal Grandfather lung No Known Problems Daughter Social History Tobacco Use Smoking status: Never Smoker Smokeless tobacco: Never Used Vaping Use Vaping Use: Never used Substance Use Topics Alcohol use: Not Currently Drug use: No Review of Systems Constitutional: Negative for fever. HENT: Positive for congestion and sore throat. Negative for ear pain and nosebleeds. Respiratory: Positive for cough and shortness of breath. Negative for wheezing. Cardiovascular: Negative for chest pain. Musculoskeletal: Negative for neck pain. Skin: Negative for itching and rash. Neurological: Positive for headaches. Objective Blood pressure 124/70, pulse 79, temperature 36.2 C (97.2 F), resp. rate 18, weight 88.6 kg (195 lb 6.4 oz), last menstrual period 04/11/2022, SpO2 97 %, currently . Physical Exam Constitutional: General: She is not in acute distress. Appearance: She is ill-appearing (mild). She is not toxic-appearing or diaphoretic. HENT: Head: Normocephalic and atraumatic. Cardiovascular: Rate and Rhythm: Normal rate and regular rhythm. Heart sounds: Normal heart sounds, S1 normal and S2 normal. Pulmonary: Effort: Pulmonary effort is normal. Breath sounds: Normal breath sounds. Lymphadenopathy: Cervical: No cervical adenopathy. Right cervical: No superficial cervical adenopathy. Left cervical: No superficial cervical adenopathy. Neurological: Mental Status: She is alert and oriented to person, place, and time. Gait: Gait is intact. ASSESSMENT/PLAN: 1. URI, acute - ICD9: 465.9, ICD10: J06.9 (primary diagnosis) - Discussed viral etiology and rationale for treatment. - Symptomatic treatment with prn analgesia - Supportive care with fluids and rest - Follow up in 3-5 days if symptoms persist or sooner if worsening of symptoms - PREDNISONE 20 MG TABLET - COVID WITH FLUA+B, ROUTINE 2. Sinus pressure - ICD9: 478.19, ICD10: J34.89 Hold atb for 5 days, fill if sinus pressure continues/worsens. - Supportive care with plenty of fluids, rest, and analgesia prn. - Follow up in 3-5 days if symptoms persist or worsen. - AMOXICILLIN 875 MG-POTASSIUM CLAVULANATE 125 MG TABLET - PREDNISONE 20 MG TABLET Agrees to plan Edy Parrish APRN.JOHNNY documented in this encounter [facility] documented as of this encounter (statuses as of 05/04/2022) [facility] History of Past illness Narrative* Problem Noted Date Resolved Date Patient travels 05/28/2019 05/12/2021 Overview: 05/28/2019Patient travelled to [place] 3 weeks ago for a late honeymoon. Zika information given. Patient considering testing. Will discuss at NOB. SANDORRDanitza documented as of this encounter (statuses as of 01/07/2023) [facility] History of Past illness Narrative* Problem Noted Date Diagnosed Date Resolved Date Patient travels 05/28/2019 05/12/2021 Overview: 05/28/2019Patient travelled to [place] 3 weeks ago for a late honeymoon. Zika information given. Patient considering testing. Will discuss at NOB. TKRN documented as of this encounter (statuses as of 06/17/2023) [facility] History of Past illness Narrative* Problem Noted Date Diagnosed Date Resolved Date Patient travels 05/28/2019 05/12/2021 Overview: 05/28/2019Patient travelled to [place] 3 weeks ago for a late honeymoon. Zika information given. Patient considering testing. Will discuss at NOB. TKRN documented as of this encounter (statuses as of 06/30/2023) [facility] History of Past illness Narrative* Problem Noted Date Diagnosed Date Resolved Date Patient travels 05/28/2019 05/12/2021 Overview: 05/28/2019Patient travelled to [place] 3 weeks ago for a late honeymoon. Zika information given. Patient considering testing. Will discuss at NOB. TKRN documented as of this encounter (statuses as of 07/29/2023) [facility] History of Past illness Narrative* Problem Noted Date Diagnosed Date Resolved Date Patient travels 05/28/2019 05/12/2021 Overview: 05/28/2019Patient travelled to [place] 3 weeks ago for a late honeymoon. Zika information given. Patient considering testing. Will discuss at NOB. TKRN documented as of this encounter (statuses as of 08/17/2023) [facility] History of Past illness Narrative* Problem Noted Date Diagnosed Date Resolved Date Patient travels 05/28/2019 05/12/2021 Overview: 05/28/2019Patient travelled to [place] 3 weeks ago for a late honeymoon. Zika information given. Patient considering testing. Will discuss at NOB. TKRN documented as of this encounter (statuses as of 08/18/2023) [facility] Diagnosis URI, acute- Primary Acute upper respiratory infections of unspecified site Sinus pressure Other diseases of nasal cavity and sinuses [facility] Diagnosis Sore throat- Primary Acute pharyngitis Viral bronchitis Acute bronchitis [facility] Diagnosis Encounter for IUD insertion- Primary Encounter for insertion of intrauterine contraceptive device General counseling and advice for contraceptive management Other general counseling and advice for contraceptive management Pelvic pain documented in this encounter [facility] note* Diagnosis Encounter for IUD insertion- Primary Encounter for insertion of intrauterine contraceptive device documented in this encounter [facility] note* Diagnosis Abnormal uterine bleeding (AUB)- Primary documented in this encounter [facility] note* Diagnosis Breakthrough bleeding with IUD- Primary Metrorrhagia [facility] Outpatient Procedure (Routine) - Pending Review Specialty Diagnoses / Procedures Referred By Karen real Referred To Contact [facility] Diagnoses Encounter for IUD insertion Procedures INSERT INTRAUTERINE DEVICE LEVONORGESTREL IU 52MG 5 YR INSERT INTRAUTERINE DEVICE Edwin Burch MD [address] [place] [address] [address] Referral ID Status Reason Start Date Expiration Date Visits Requested Visits Authorized [id number] Pending Review Auto-Generat ed Referral 06/29/2023 06/28/2024 1 1 [facility] Summary Purpose Family History No Family History Records FoundNo Family History Records FoundNo Family History Records FoundNo Family History Records FoundNo Family History Records Found Advance Directives No Advanced Directives Records FoundNo Advanced Directives Records FoundNo Advanced Directives Records FoundNo Advanced Directives Records FoundNo Advanced Directives Records Found Chief Complaint GI issues that are chronic Medications Administered Section Inactive Administered Medications - up to 3 most recent administrations Medication Order MAR Action Action Date Dose Rate Site levonorgestrel 21 mcg/24 hours (8 yrs) 52 mg 1 Each intrauterine device (MIRENA) 1 Each, INTRAUTERINE, ONCE (UP TO 30 DAYS AMB), 1 dose, On Tue07/29/23 at 1430, Hazardous Potential Reproductive Risk Drug: Use appropriate PPE. Given 07/29/2023 2:21 PM EDT 1 Each Additional Source Comments INFORMATION SOURCE (unrecogn ized section and content) DATE CREATED AUTHOR AUTHOR'S ORGANIZ ATION 02/10/2023 [facility] DATE CREATED AUTHOR AUTHOR'S ORGANIZ ATION 02/11/2023 [facility] DATE CREATED AUTHOR AUTHOR'S ORGANIZ ATION 02/15/2023 [facility] DATE CREATED AUTHOR AUTHOR'S ORGANIZ ATION 10/13/2023 [facility] Source Comments (unrecognize d section and content) In the event this informatio n is protected by the Federal Confidentiality of Alcohol and Drug Abuse Patient Records regulations: The Federal rules restrict any use of the information to criminally investigate or prosecute any alcohol or drug abuse patient.[facility] the event this information is protected by the Federal Confidentiality of Alcohol and Drug Abuse Patient Records regulations: The Federal rules restrict any use of the information to criminally investigate or prosecute any alcohol or drug abuse patient.[facility] the event this information is protected by the Federal Confidentiality of Alcohol and Drug Abuse Patient Records regulations: The Federal rules restrict any use of the information to criminally investigate or prosecute any alcohol or drug abuse patient.[facility] the event this information is protected by the Federal Confidentiality of Alcohol and Drug Abuse Patient Records regulations: The Federal rules restrict any use of the information to criminally investigate or prosecute any alcohol or drug abuse patient.[facility] the event this information is protected by the Federal Confidentiality of Alcohol and Drug Abuse Patient Records regulations: The Federal rules restrict any use of the information to criminally investigate or prosecute any alcohol or drug abuse patient.[facility] the event this information is protected by the Federal Confidentiality of Alcohol and Drug Abuse Patient Records regulations: The Federal rules restrict any use of the information to criminally investigate or prosecute any alcohol or drug abuse patient.[facility] the event this information is protected by the Federal Confidentiality of Alcohol and Drug Abuse Patient Records regulations: The Federal rules restrict any use of the information to criminally investigate or prosecute any alcohol or drug abuse patient.[facility] Reason for Visit (unrecogniz ed section and content) Reason Comments Cough Chest congestion, so re throat x 6 days Reason Comments Discussion Birthcontrol and rec ent CT in ER Reason Onset Date Comments Insertion Of IUD 07/29/2023 Specialty Diagnoses / Procedures Referred By Karen real Referred To Contact [facility] Diagnoses Encounter for IUD insertion Procedures INSERT INTRAUTERINE DEVICE LEVONORGESTREL IU 52MG 5 YR INSERT INTRAUTERINE DEVICE Edwin Burch MD [address] 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 Relationship Specialty Start Date End Date Serena Christensen DO [address] [place], [place] [id number] PCP - General Family Medicine 12/28/18 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 Relationship Specialty Start Date End Date Serena Christensen DO [address] [place], [place] [phone] PCP - General Family Medicine 12/28/18 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 This clinical summary was aggregated from multiple sources. Caution should be exercised in using it in the provision of clinical care. This summary normalizes information from multiple sources, and as a consequence, information in this document may materially change the coding, format and clinical context of patient data. In addition, data may be omitted in some cases. CLINICAL DECISIONS SHOULD BE BASED ON THE PRIMARY CLINICAL RECORDS. [facility]. provides no warranty or guarantee of the accuracy or completeness of information in this document.
[2023-11-17 18:12] LABS: HPV Reflexed? NOT INDICATED
== END | disposition home or self-care (01) ==
LOC: LABSPEC 18:19
PROVIDERS: PCP Family Medicine; Visit Provider Registered Nurse
DX: Z12.4 Encounter for screening for malignant neoplasm of cervix (principal)
CPT/HCPCS: 88175; G0145

== ENCOUNTER → 2023-12-20 | Outpatient (CLI) | payer OTHER, SELFPAY ==
--- NOTE | 2023-12-20 15:38 | RAD_ITS ---
INDICATION: SCREENING TB EXAMINATION/TECHNIQUE: X-RAY - XR Chest 2 Views COMPARISON: 11/17/2016 FINDINGS: LINES/DEVICES: None. LUNGS: No consolidation. No pneumothorax. MEDIASTINUM: Unremarkable. CARDIAC SILHOUETTE: Not enlarged. BONES AND SOFT TISSUES: No acute abnormalities. RAD/Chest PA and Lateral IMPRESSION: No evidence of active intrathoracic disease. Electronically Signed: Katelin Painting MD at 0:23 EST ,
== END | disposition home or self-care (01) ==
LOC: MTRAD 15:34
PROVIDERS: PCP Family Medicine; Referring Provider Family Medicine; Visit Provider Family Medicine
DX: Z11.1 Encounter for screening for respiratory tuberculosis (principal)
CPT/HCPCS: 71046

== ENCOUNTER 2024-10-05 15:44 | Emergency (ER) | payer OTHER, SELFPAY ==
[2024-10-05 15:45] VITALS: BP 149/79; PULSE 83; RESP 16; TEMP 36.6; O2SAT 99; BMI 29.2
--- NOTE | 2024-10-05 16:05 | ED.VIS.CHEST ---
HPI History of Present Illness Chief Complaint: Chest Pain Informant: patient Onset/Context/Timing Onset: Days (6) Activity at onset: sudden Timing: Continuous Quality: Positive for Heaviness and Pressure Location: Substernal Worsened By: Nothing Relieved By: Nothing Associated Symptoms: Positive for Diaphoresis, Dyspnea, Lightheadedness and Palpitations; Negative for Nausea, Vomiting, Cough, Fever or Acid Reflux Narrative Narrative: Patient presents with chest pain that began 5 days ago. Patient states it has been constant. Patient states that when it began she felt like it was a panic attack. Patient states it has been persistent. Patient describes her pain as a pressure. Patient states it is over the substernal area. Patient admits to some diaphoresis when the pain began. Patient admits to some shortness of breath. Patient admits to some lightheadedness and some palpitations. Patient denies any nausea or vomiting. Patient denies any fevers or chills. Patient states the pain does radiate into her neck and back. CVD Risk Factors: Negative for Hypertension, Diabetes, Hypercholesterolemia, Family History 1' </=55 or Smoking PE Risk Factors: Negative for Recent Travel/Surgery, Recent Immobilization, Prior DVT or PE, Cancer or OCP + Smoking + >/=35 PFSH PFSH Medical History Anxiety Alcohol use Low iron Heartburn Non-smoker Nausea RUQ pain Laceration, obstetrical, second degree Vaginal delivery Thalassemia carrier White coat syndrome with diagnosis of hypertension Thalassemia carrier Asthma Home Medications ?Medication ?Instructions ?Recorded ?Last Taken ?Type albuterol sulfate 90 mcg/actuation 90 mcg PO PRN PRN Asthma 02/04/16 Unknown History aerosol inhaler cetirizine 10 mg capsule (Zyrtec) 10 mg PO DAILY allergies 11/17/21 08/31/22 History sertraline 100 mg tablet 100 mg PO DAILY anxiety 11/17/21 08/31/22 History multivitamin 1 tab PO/SL DAILY 05/05/22 Unknown History hydroxyzine pamoate 25 mg capsule 25 mg PO BID PRN ANXIETY 08/25/22 Unknown History dicyclomine 20 mg tablet 20 mg PO BID #60 tabs 09/14/22 Unknown Rx ondansetron 4 mg disintegrating 4 mg PO Q8H PRN nausea and 08/31/23 Unknown Rx tablet vomiting 3 days #9 tabs Allergy/AdvReac Type Severity Reaction Status Date / Time No Known Allergies Allergy Verified 10/05/24 15:45 Family History Father Cancer oral cancer Asthma Mother Arthritis Grandfather Cancer lung Grandfather Cancer skin; pancreatic Grandmother CVA (cerebral vascular accident) Myocardial infarction Thyroid disorder Cancer skin cancer Surgical History S/P laparoscopic cholecystectomy Hx laparoscopic cholecystectomy History of vacuum extraction assisted delivery H/O wisdom tooth extraction Social History adopted: No household members: spouse and children housing: house number of children: 2 current occupational 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 and student 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 current occupational exposures/hazards: No pets and animals: Yes history of recent travel: Yes out of country: Yes sexually active: Yes Smoking Status: Never smoker second hand exposure: Yes alcohol intake: current alcohol intake frequency: holidays/special occasions only details: not when substance use type: does not use seatbelt use: always do you feel safe at home: Yes 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 ROS ROS ED Constitutional Constitutional ED: Denies chills or fever(s) Eyes Eyes: Denies blurry vision or change in vision ENT ENT ED: Denies rhinorrhea or sore throat Cardiovascular Cardiovascular: Reports chest pain and palpitations Respiratory/Chest Respiratory/Chest: Reports dyspnea; Denies cough Gastrointestinal Gastrointestinal: Denies abdominal pain, nausea or vomiting Genitourinary Genitourinary ED: Denies dysuria or hematuria Musculoskeletal Musculoskeletal: Reports back pain and neck pain Integumentary Denies abscess or rash Neurologic Neurologic: Denies headache(s) or weakness Allergic/Immunologic Allergic/Immunologic ED: Denies mouth swelling or urticaria EXAM Physical Exam Const Vital Signs: 10/05/24 15:45 10/05/24 16:28 Temperature 97.9 F Temperature Source Oral Pulse Rate 83 Respiratory Rate 16 Respiratory Effort Normal Non-Labored Blood Pressure 149/79 H Blood Pressure Mean 102 Pulse Ox 99 Oxygen Delivery Method Room Air Positive well nourished and well developed General Appearance ED: well developed and NAD HEENT Reports moist mucous membranes Neck supple and no JVD Chest Wall inspection of chest normal Chest: tenderness costochondral junction (Right parasternal area) Resp normal respiratory effort and clear to auscultation bilaterally Cardio regular rate and regular rhythm GI soft to palpation, non-tender and non-distended Extremity normal to inspection General Extremety ED: Negative for edema or tenderness General Extremity: Negative for edema Neuro oriented x3, CN's II-XII intact bilaterally and no sensory deficits noted Sensorium / Orientation: awake and alert Motor Exam: strength 5/5 throughout Psych mental status grossly normal Heart Score History: Slightly/Non-Suspicious ECG: Normal Age: </= 45 years Risk Factors: No Risk Factors Troponin: </= Normal Limit Score: 0 MDM MDM MDM Narrative Medical decision making narrative: Differential diagnosis includes cardiac dysrhythmia, cardiac ischemia, electrolyte abnormality, pneumonia, pneumothorax, gastroesophageal reflux disease, and anxiety. EKG will be obtained to assess for cardiac dysrhythmia and cardiac ischemia. Chest x-ray will be obtained to assess for pneumonia and pneumothorax. CBC will be obtained to assess for leukocytosis and anemia. Basic metabolic profile will be obtained to assess for electrolyte abnormality and renal function. High-sensitivity troponin will be obtained to assess for cardiac ischemia. Serum hCG will be obtained to assess for . Patient is PERC negative and has a Wells score of 0. I do not feel this is from a pulmonary embolism. Lab Data Attestation: I reviewed the patient's lab results. Lab results narrative: CBC was reviewed and was within normal limits. Basic metabolic profile was reviewed and was within normal limits. High-sensitivity troponin was reviewed and was normal at 4. Serum hCG was reviewed and was negative. Labs: Laboratory Results - last 24 hr 10/05/24 16:09 WBC 7.4 RBC 4.35 Hgb 12.5 Hct 38.1 MCV 87.6 MCH 28.7 MCHC 32.8 RDW Std Deviation 42.1 RDW Coeff of Maikel 13.1 Plt Count 236 MPV 10.8 Immature Gran % (Auto) 0.100 Neut % (Auto) 59.0 Lymph % (Auto) 30.1 [place] % (Auto) 8.5 Eos % (Auto) 1.9 Baso % (Auto) 0.4 Absolute Neuts (auto) 4.4 Absolute Lymphs (auto) 2.23 Nucleated RBC % 0 Sodium 136 Potassium 3.7 Chloride 108 H Carbon Dioxide 22.0 Anion Gap 6 BUN 15 Creatinine 1.04 H Estim Creat Clear Calc 86.99 Est GFR (MDRD) Af Amer 81 Est GFR (MDRD) Non-Af 67 BUN/Creatinine Ratio 14.4 Glucose 103 Calcium 9.1 Troponin I High Sens 4 Serum , Qual NEGATIVE Radiography Chest X-Ray - ED: 2 View, Read by ED Physician, Read by Radiologist and No Acute Disease Diagnostic Testing: Clinical Impression(s) from Imaging Studies Chest X-Ray 10/05/24 16:50 IMPRESSION: No radiographic evidence of acute cardiopulmonary disease. Electronically Signed: Ruel Samayoa MD at 17:16 EST , PA and lateral chest x-ray was obtained. There are 2 views. On my independent interpretation, lung guo are clear. There is normal cardiac silhouette. Bony thorax is normal. There is no acute process noted. Radiologist also interpreted the x-ray and agrees. EKG Initial EKG: Attestation: I personally reviewed and interpreted this EKG as follows: Interpretation: Sinus Rhythm (74) and No Acute Injury Pattern Comments: EKG was obtained. On my independent interpretation, it showed a normal sinus rhythm with a rate of 74. MO interval, QRS interval, and QTc intervals were all normal. [place] was normal. There are no acute ST or T wave changes. Prior EKG tracings: available for review Prior: Unchanged (02/04/2016) Treatment and Re-Evaluation :: Patient was advised of her findings. Patient has a HEART score of 0. Patient was advised that this is low risk for acute cardiac event. Patient was instructed to take Tylenol or ibuprofen as needed for pain. Patient was instructed to continue her antianxiety medications. Patient was instructed to follow-up with her primary care physician in 5 to 7 days. Patient understood and was agreeable with the plan. All questions were answered. Discharge Plan Triage Chief Complaint: Chest Pain ED Provider: Grover Sabillon Dx/Rx/DC Orders Clinical Impression: Chest pain, Anxiety Instructions: ED Chest Pain, Uncertain Cause Prescriptions: No Action dicyclomine 20 mg tablet 20 mg PO BID Qty: 60 2RF Rx Instructions: Take 30 minutes for meals. Okay to take before lunch and supper or breakfast and lunch albuterol sulfate 1 INHALER inhaler 90 mcg PO PRN PRN (Reason: Asthma) Zyrtec 10 mg Capsule 10 mg PO DAILY sertraline 100 mg tablet 100 mg PO DAILY multivitamin 1 tab PO/SL DAILY hydroxyzine pamoate 25 mg Capsule 25 mg PO BID PRN (Reason: ANXIETY) ondansetron 4 mg tablet,disintegrating 4 mg PO Q8H PRN (Reason: nausea and vomiting) 3 Days Qty: 9 0RF Primary Care Provider: Marty Christensen Referrals: Marty Christensen DO [Primary Care Provider] - 5-7 Days Print Language: Citizen Of [place] Disposition Disposition: Home, Self Care
--- NOTE | 2024-10-05 16:21 | EKG12_ITS ---
Test Reason : CP Blood Pressure : */* mmHG Vent. Rate : 74 BPM Atrial Rate : 74 BPM P-R Int : 140 ms QRS Dur : 82 ms QT Int : 386 ms P-R-T Axes : 23 12 5 degrees QTcB Int : 428 ms Normal sinus rhythm Normal ECG Confirmed by BRITTON DORADO, MIRTHA ([id number]), electronic news gathering editor CASSIDY CANTU ([id number]) on 10/08/2024 6:40:27 AM Referred By: SHAUNA Confirmed By: MIRTHA JARQUIN MD
[2024-10-05 16:32] LABS: Absolute Lymphocyte Count 2.23 X10^3/uL (0.83-4.51); Absolute Neutrophil Count 4.4 X10^3/uL (2.0-7.7); Basophil# 0.03 X10^3/uL; Basophil% 0.4 % (0-1); Eosinophil# 0.14 X10^3/uL; Eosinophils% 1.9 % (0-5); Hematocrit 38.1 % (37-47); Hemoglobin 12.5 g/dL (12.0-15.0); Lymphocyte # 2.23 X10^3/ul (0.83-4.51); Lymphocyte % 30.1 % (19-41); Mean Corp Hgb Conc 32.8 g/dL (32-36); Mean Corpuscular Hgb 28.7 pg (27.0-32.0); Mean Corpuscular Volume 87.6 fL (81-99); Mean Platelet Vol. 10.8 fl (6.2-12.0); Monocyte# 0.63 X10^3/uL; Monocyte% 8.5 % (0-10); NRBC Flagged by Analyzer 0 % (0-5); Neutrophil # 4.37 X10^3/uL (2.7-7.7); Platelet Count 236 K/mm3 (150-450); RBC Distribution Width CV 13.1 % (11.6-14.6); RBC Distribution Width SD 42.1 fl (35.1-43.9); Red Blood Count 4.35 M/mm3 (4.2-5.4); White Blood Count 7.4 K/mm3 (4.4-11.0)
[2024-10-05 16:46] LABS: Internal QC Validated? YES +Cl - CLEAR BKGD; Pregnancy, Serum, hCG Quali. NEGATIVE Negative
--- NOTE | 2024-10-05 16:50 | RAD_ITS ---
EXAM: XR CHEST, 2 VIEWS CLINICAL INDICATION: Chest pain TECHNIQUE: Frontal and lateral views of the chest. COMPARISON: 12/20/2023 FINDINGS: LUNGS AND PLEURAL SPACES: Unremarkable. No consolidation or edema. No pneumothorax. No effusion. HEART: Unremarkable. Cardiac silhouette not enlarged. MEDIASTINUM: Central airways and mediastinal contour are unremarkable. BONES/JOINTS: Unremarkable. No acute fracture. SOFT TISSUES: Unremarkable. RAD/Chest PA and Lateral IMPRESSION: No radiographic evidence of acute cardiopulmonary disease. Electronically Signed: Ruel Samayoa MD at 17:16 EST ,
[2024-10-05 16:55] LABS: Anion Gap 6 (5-15); BUN 15 mg/dL (7-18); BUN/Creat Ratio 14.4 RATIO (10-20); Calcium,Total 9.1 mg/dL (8.5-10.1); Chloride 108 mmol/L (98-107); Creatinine, Serum 1.04 mg/dL (0.55-1.02); EST Glomerular Filtration Rate 67 mL/min (>60); Est Glom Filt Rate - Afr Amer 81 mL/min (>60); Estimated Creatinine Clearance 86.99 ml/min; Glucose 103 mg/dL (74-106); Potassium 3.7 mmol/L (3.5-5.1); Sodium Level 136 mmol/L (136-145); Troponin-I HS 4 pg/mL (3.0-54.0)
[2024-10-05 17:45] VITALS: BP 92/57; PULSE 65; RESP 16; TEMP 36.6; O2SAT 100
== END 2024-10-05 17:46 | disposition home or self-care (01) ==
PROVIDERS: Emergency Provider Emergency Medicine; PCP Family Medicine; Visit Provider Emergency Medicine
DX: R07.9 Chest pain, unspecified (principal); F41.9 Anxiety disorder, unspecified; J45.909 Unspecified asthma, uncomplicated
CPT/HCPCS: 71046; 80048; 84484; 84703; 85025; 93005; 99283; A4216

== ENCOUNTER → 2024-12-04 | Outpatient (CLI) | payer OTHER, SELFPAY ==
[2024-12-04 14:47] LABS: HIV - WCH Non-Reactive (Nonreactive); Hepatitis C Antibody Non-Reactive (Nonreactive); Syphilis Antibodies Non-reactive
[2024-12-05 21:07] LABS: Chlamydia By Nucleic Acid AMP Negative (Negative); Gonococcus By Nucleic Acid AMP Negative (Negative)
== END | disposition home or self-care (01) ==
LOC: BWCLAB 09:54
PROVIDERS: PCP Family Medicine; Referring Provider Nurse Practitioner Women's Health; Visit Provider Nurse Practitioner Women's Health
DX: Z20.2 Contact with and (suspected) exposure to infections with a predominantly sexual mode of transmission (principal)
CPT/HCPCS: 36415; 86695; 86696; 86703; 86780; 86803; 87491; 87591

== ENCOUNTER → 2025-02-05 | Outpatient (CLI) | payer OTHER, SELFPAY ==
--- NOTE | 2025-02-05 13:02 | CT_ITS ---
PROCEDURE: ABDOMEN/PELVIS WITH CONTRAST 02/05/2025 REASON FOR EXAM: CRAMPING RIGHT-SIDED ABDOMINAL PAIN OF UNCERTAIN CAUSE One-month history of right lower quadrant pain. TECHNIQUE: Abdomen and pelvis CT with intravenous contrast. Coronal and Sagittal reconstruction series were provided. PATIENT PREPARATION: Per protocol ORAL CONTRAST TYPE: Oral contrast was given. CONTRAST: Isovue-300 VOLUME: 100 mL One or more dose reduction techniques were used (e.g., Automated exposure control, adjustment of the mA and/or kV according to patient size, use of iterative reconstruction technique. RADIATION DOSE SUMMARY: CTDlvol: 13.2 mGy DLP: 1091.86 mGycm COMPARISON: None FINDINGS: Lung bases: Unremarkable. Liver: Normal size. No mass. Gallbladder: Surgically absent. Spleen: Normal size. Pancreas: Normal size without evidence of mass surrounding inflammation or ductal dilation. Adrenals: Unremarkable Kidneys: Normal renal sizes. No hydronephrosis. Bladder: Unremarkable Reproductive Organs: Unremarkable Bowel: Moderate amount of fecal material is seen in the right hemicolon. Appendix: Unremarkable Lymph nodes: Unremarkable. Vasculature: The abdominal aorta and IVC are normal. Peritoneum / Retroperitoneum: Unremarkable Bones: Unremarkable CT/Abdomen/Pelvis WITH Contrast IMPRESSION: Status post cholecystectomy. Moderate amount of fecal material is seen in the right hemicolon. Reading Location: [place] [address]
== END | disposition home or self-care (01) ==
LOC: CT 13:00
PROVIDERS: PCP Family Medicine; Referring Provider Family Medicine; Visit Provider Family Medicine
DX: R10.9 Unspecified abdominal pain (principal)
CPT/HCPCS: 74177; Q9967

== ENCOUNTER 2025-03-03 19:02 | Emergency (ER) | payer OTHER, SELFPAY ==
[2025-03-03 19:03] VITALS: BP 139/91; PULSE 102; RESP 18; TEMP 36.5; O2SAT 99; BMI 31.2
--- NOTE | 2025-03-03 19:37 | CT_ITS ---
PROCEDURE: ABDOMEN/PELVIS W IV CONT ONLY 03/03/2025 REASON FOR EXAM: ABD PAIN, N/V,D TECHNIQUE: Abdomen and pelvis CT with intravenous contrast. Coronal and Sagittal reconstruction series were provided. PATIENT PREPARATION: Per protocol ORAL CONTRAST TYPE: None. AMOUNT: mL CONTRAST: Omnipaque 350 VOLUME: 100 mL Not Provided Gauge IV One or more dose reduction techniques were used (e.g., Automated exposure control, adjustment of the mA and/or kV according to patient size, use of iterative reconstruction technique. COMPARISON: CT abdomen and pelvis 02/05/2025 FINDINGS: Lung bases: Unremarkable. Liver: Homogeneous attenuation. Focal fat about the falciform ligament. No focal lesion. Gallbladder: No ductal dilation. Cholecystectomy. Spleen: Normal size. Pancreas: Normal size without evidence of mass surrounding inflammation or ductal dilation. Adrenals: Unremarkable Kidneys: Normal renal sizes. No hydronephrosis. Bladder: No wall thickening. Reproductive Organs: No pelvic mass. Tampon is noted. Bowel: Stomach is slightly distended. No bowel dilation. Multiple fluid-filled nondistended small bowel and colonic loops without abnormal wall thickening. Appendix: Normal appendix Lymph nodes: No suspicious lymph node enlargement. Vasculature: The abdominal aorta and IVC are normal. Peritoneum / Retroperitoneum: No pneumoperitoneum. No ascites. Bones: No acute osseous abnormality. Soft tissue: Unremarkable. CT/Abdomen/Pelvis W IV Cont ONLY IMPRESSION: Multiple nondistended fluid-filled small bowel and colonic loops, concerning fo r acute infectious enterocolitis, given reported history of nausea, vomiting and diarrhea. OVERALL FINAL ASSESSMENT: . LI-RADS is not meant to be used in patients <18 years or patients with cirrhosi s due to congenital hepatic fibrosis or due to vascular disorders, because these patients have a lower chance of developing HC C. Reading Location: [facility]
[2025-03-03 19:48] LABS: Absolute Lymphocyte Count 1.83 X10^3/uL (0.83-4.51); Absolute Neutrophil Count 3.7 X10^3/uL (2.0-7.7); Basophil# 0.02 X10^3/uL; Basophil% 0.3 % (0-1); Eosinophil# 0.07 X10^3/uL; Eosinophils% 1.1 % (0-5); Hematocrit 41.8 % (37-47); Hemoglobin 14.4 g/dL (12.0-15.0); Lymphocyte # 1.83 X10^3/ul (0.83-4.51); Lymphocyte % 29.6 % (19-41); Mean Corp Hgb Conc 34.4 g/dL (32-36); Mean Corpuscular Hgb 29.7 pg (27.0-32.0); Mean Corpuscular Volume 86.2 fL (81-99); Monocyte# 0.55 X10^3/uL; Monocyte% 8.9 % (0-10); NRBC Flagged by Analyzer 0 % (0-5); Neutrophil % 59.9 % (47-70); Platelet Count 266 K/mm3 (150-450); RBC Distribution Width CV 13.3 % (11.6-14.6); RBC Distribution Width SD 41.9 fl (35.1-43.9); Red Blood Count 4.85 M/mm3 (4.2-5.4); White Blood Count 6.2 K/mm3 (4.4-11.0)
[2025-03-03] MEDS: 0.9% Normal Saline (1000mL) 1,000 ML 999 ML IV (19:55)
[2025-03-03] MEDS: Dicyclomine 10 MG Capsule 20 MG PO ×2 (19:56→22:40)
[2025-03-03] MEDS: Ondansetron 4 MG/2 ML Vial IV (19:56)
[2025-03-03 20:04] LABS: Internal QC Validated? YES +Cl - CLEAR BKGD; Pregnancy, Serum, hCG Quali. NEGATIVE Negative
[2025-03-03 20:11] LABS: ALB/GLOB Ratio 1.4 RATIO (0.9-2.4); AST(SGOT) 39 U/L (<=31); Alanine Aminotransfer ALT/SGPT 48 U/L (<=34); Albumin, Serum 4.6 g/dL (3.5-5.0); Alkaline Phosphatase 73 U/L (35-104); Anion Gap 13 (5-15); BUN 6 mg/dL (4-19); BUN/Creat Ratio 7.2 RATIO (10-20); Calcium,Total 9.5 mg/dL (7.6-11.0); Carbon Dioxide 20.3 mmol/L (21.0-32.0); Chloride 105 mmol/L (98-108); Creatinine, Serum 0.88 mg/dL (0.70-1.20); EST Glomerular Filtration Rate 92 (>60); Estimated Creatinine Clearance 106.23 ml/min (50-250); Globulin 3.4 g/dL (2.2-4.2); Glucose 93 mg/dL (70-99); Lipase 27 U/L (13-75); Potassium 3.6 mmol/L (3.3-5.1); Protein, Total 7.9 g/dL (5.9-8.4); Sodium Level 138 mmol/L (133-145); Total Bilirubin 0.37 mg/dL (0.00-1.30)
[2025-03-03 20:54] LABS: Internal QC Validated? YES +Cl - CLEAR BKGD
[2025-03-03 20:55] LABS: Pregnancy, Urine Negative Negative
[2025-03-03 21:15] VITALS: BP 114/68; PULSE 71; RESP 16; TEMP 36.7; O2SAT 99
--- NOTE | 2025-03-03 21:17 | EX.ED.DYSGE1 ---
HPI History of Present Illness Chief Complaint: Nausea/Vomiting/Diarrhea Narrative Narrative: Patient is a 29-year-old female with past medical history of Scott, alcohol use, thalassemia who presented to the emergency department with a chief complaint of abdominal pain nausea vomiting diarrhea. Patient states that her symptoms started on and has not improved therefore she came here for the valuation management. Patient states that she is currently on her menstrual cycle now therefore does not believe she would be . Patient states that she did have her gallbladder removed. Denies any recent contacts. Patient states that she vomited earlier today and has had multiple episodes of diarrhea. [facility] Medical History Anxiety Alcohol use Low iron Heartburn Non-smoker Laceration, obstetrical, second degree Vaginal delivery Thalassemia carrier White coat syndrome with diagnosis of hypertension Thalassemia carrier Asthma Home Medications ?Medication ?Instructions ?Recorded ?Last Taken ?Type albuterol sulfate 90 mcg/actuation 90 mcg PO PRN PRN Asthma 02/04/16 Unknown History aerosol inhaler cetirizine 10 mg capsule (Zyrtec) 10 mg PO DAILY allergies 11/17/21 08/31/22 History sertraline 100 mg tablet 100 mg PO DAILY anxiety 11/17/21 08/31/22 History multivitamin 1 tab PO/SL DAILY 05/05/22 Unknown History hydroxyzine pamoate 25 mg capsule 25 mg PO BID PRN ANXIETY 08/25/22 Unknown History dicyclomine 20 mg tablet 20 mg PO TID #20 tabs 03/03/25 Unknown Rx ondansetron 4 mg disintegrating 4 mg PO Q6H PRN nausea and 03/03/25 Unknown Rx tablet vomiting #20 tabs semaglutide 1 mg/dose (4 mg/3 mL) 0.5 mg subcut QWEEK 03/03/25 Unknown History subcutaneous pen injector Allergy/AdvReac Type Severity Reaction Status Date / Time No Known Allergies Allergy Verified 03/03/25 19:03 Family History Father Cancer oral cancer Asthma Mother Arthritis Grandfather Cancer lung Grandfather Cancer skin; pancreatic Grandmother CVA (cerebral vascular accident) Myocardial infarction Thyroid disorder Cancer skin cancer Surgical History S/P laparoscopic cholecystectomy Hx laparoscopic cholecystectomy History of vacuum extraction assisted delivery H/O wisdom tooth extraction Social History adopted: No household members: spouse and children housing: house number of children: 2 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 occupational 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 and student current occupation: [employer] current occupational exposures/hazards: No pets and animals: Yes history of recent travel: Yes out of country: Yes sexually active: Yes Smoking Status: Never smoker second hand exposure: Yes alcohol intake: current alcohol intake frequency: holidays/special occasions only details: not when substance use type: does not use seatbelt use: always do you feel safe at home: Yes 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 ROS ROS ED ROS Narrative Constitutional: Denies any fevers, chills, headaches, lightness, dizziness Abdomen: Complains of abdominal pain nausea vomit diarrhea as noted above : Denies any urinary symptoms Neurological: Denies any numbness, weakness, tingling Musculoskeletal: Denies back pain Skin: Denies any rashes or lesions EXAM Physical Exam Narrative Exam Narrative: General: Patient lying in bed rest comfortably did not appear to be acute distress Head: Atraumatic, normocephalic Eyes: PERRL bilaterally, EOMI bilateral, no conjunctival injection noted Neck: Soft, supple, trachea midline Cardiovascular: Patient tachycardic with regular rhythm Respiratory: Clear to auscultation bilaterally Abdomen: Soft, nondistended, right lower quadrant tenderness on exam no rebound or guarding noted on exam however she is also diffusely tender Extremities: +5/5 strength noted in the bilateral upper and lower extremities, radial pulses +2/4 in the bilateral extremities Neurological: Patient follow commands knew that she was at [facility] 2024 Skin: Warm, dry, intact no rashes or lesions noted Const Vital Signs: 03/03/25 19:03 03/03/25 21:15 Temperature 97.7 F L 98.1 F Temperature Source Oral Oral Pulse Rate 102 H 71 Respiratory Rate 18 16 Blood Pressure 139/91 H 114/68 Blood Pressure Mean 107 83 Pulse Ox 99 99 Oxygen Delivery Method Room Air Room Air MDM MDM MDM Narrative Medical decision making narrative: Patient is a 21-year-old female who presented to the emergency department chief complaint of abdominal pain. On the differential diagnose includes but not limited to viral gastroenteritis, appendicitis, bowel obstruction. Patient be given Zofran and Bentyl and be reevaluated. She also be given IV fluids. Patient CBC reviewed and showed no evidence of leukocytosis white blood count was no be 6.2, hemoglobin 14.4, platelet count normal at 266. Patient sodium was 130, TAPSE normal at 3.6, creatinine normal at 0.88. Patient AST and ALT were 39 and 48 respectively, lipase normal at 27 test was negative. Patient CT abdomen pelvis with IV contrast was reviewed showed multiple nondistended fluid-filled small bowel and colonic loops concerning for acute infectious colitis. On reevaluation the patient she is feeling better she would like to go home at this point time. Patient will be given prescription for Zofran and Bentyl. She is encouraged to continue supportive care and use prescriptions as prescribed. She is advised follow-up with primary care physician return with worsening symptoms or concerns. All question concerns answered she was discharged home in stable condition Lab Data Labs: Laboratory Results - last 24 hr 03/03/25 03/03/25 19:30 20:42 WBC 6.2 RBC 4.85 Hgb 14.4 Hct 41.8 MCV 86.2 MCH 29.7 MCHC 34.4 RDW Std Deviation 41.9 RDW Coeff of Maikel 13.3 Plt Count 266 MPV 11.0 Immature Gran % (Auto) 0.200 Neut % (Auto) 59.9 Lymph % (Auto) 29.6 [place] % (Auto) 8.9 Eos % (Auto) 1.1 Baso % (Auto) 0.3 Absolute Neuts (auto) 3.7 Absolute Lymphs (auto) 1.83 Nucleated RBC % 0 Sodium 138 Potassium 3.6 Chloride 105 Carbon Dioxide 20.3 L Anion Gap 13 BUN 6 Creatinine 0.88 Estim Creat Clear Calc 106.23 Est GFR (MDRD) Non-Af 92 BUN/Creatinine Ratio 7.2 L Glucose 93 Calcium 9.5 Total Bilirubin 0.37 AST 39 H ALT 48 H Alkaline Phosphatase 73 Total Protein 7.9 Albumin 4.6 Globulin 3.4 Albumin/Globulin Ratio 1.4 Lipase 27 Serum , Qual NEGATIVE Urine Test Negative Radiography Diagnostic Testing: Clinical Impression(s) from Imaging Studies Abdomen/Pelvis CT 03/03/25 19:37 IMPRESSION: Multiple nondistended fluid-filled small bowel and colonic loops, concerning for acute infectious enterocolitis, given reported history of nausea, vomiting and diarrhea. OVERALL FINAL ASSESSMENT: . LI-RADS is not meant to be used in patients <18 years or patients with cirrhosis due to congenital hepatic fibrosis or due to vascular disorders, because these patients have a lower chance of developing HCC. Reading Location: [facility] Discharge Plan Triage Chief Complaint: Nausea/Vomiting/Diarrhea ED Provider: Vincent Diaz Dx/Rx/DC Orders Clinical Impression: Viral gastroenteritis, Nausea & vomiting, Abdominal pain Prescriptions: New dicyclomine 20 mg tablet 20 mg PO TID Qty: 20 0RF ondansetron 4 mg tablet,disintegrating 4 mg PO Q6H PRN (Reason: nausea and vomiting) Qty: 20 0RF No Action albuterol sulfate 1 INHALER inhaler 90 mcg PO PRN PRN (Reason: Asthma) Zyrtec 10 mg Capsule 10 mg PO DAILY sertraline 100 mg tablet 100 mg PO DAILY multivitamin 1 tab PO/SL DAILY hydroxyzine pamoate 25 mg Capsule 25 mg PO BID PRN (Reason: ANXIETY) semaglutide 1 mg/dose (4 mg/3 mL) pen injector 0.5 mg subcut QWEEK Primary Care Provider: Marty Christensen Referrals: Marty Christensen, [Primary Care Provider] - Activity Restrictions/Additional Instructions: Use prescription as prescribed. Follow with your primary care physician outpatient setting. Your CT scan did not show any surgical findings did show concern for viral gastroenteritis. Your blood work did not show any acute findings. Return for worsening symptoms or concerns Print Language: Latvian Disposition Disposition: Home, Self Care
[2025-03-03] MEDS: Ondansetron ODT 4 MG Tablet PO (22:41)
[2025-03-03 22:43] VITALS: BP 110/63; PULSE 80; RESP 16; TEMP 36.6; O2SAT 99
== END 2025-03-03 23:10 | disposition home or self-care (01) ==
PROVIDERS: Emergency Provider Emergency Medicine; PCP Family Medicine; Visit Provider Emergency Medicine
DX: A08.4 Viral intestinal infection, unspecified (principal); R10.9 Unspecified abdominal pain; Z79.899 Other long term (current) drug therapy; Z79.51 Long term (current) use of inhaled steroids
CPT/HCPCS: 74177; 80053; 81025; 83690; 84703; 85025; 96361; 96374; 96376; 99284; Q9967; J2405

== ENCOUNTER → 2025-03-08 | Outpatient (CLI) | payer OTHER, SELFPAY | END | disposition home or self-care (01) | LOC: LABSPEC 14:26 | PROVIDERS: PCP Family Medicine; Referring Provider Family Medicine; Visit Provider Family Medicine | DX: R19.7 Diarrhea, unspecified (principal) | CPT/HCPCS: 83630; 87493; 87506 ==

== ENCOUNTER → 2025-04-04 | Outpatient (CLI) | payer OTHER, SELFPAY ==
[2025-04-04 15:14] LABS: Absolute Lymphocyte Count 1.27 X10^3/uL (0.83-4.51); Absolute Neutrophil Count 7.6 X10^3/uL (2.0-7.7); Basophil# 0.02 X10^3/uL; Basophil% 0.2 % (0-1); Eosinophil# 0.01 X10^3/uL; Eosinophils% 0.1 % (0-5); Hematocrit 40.2 % (37-47); Hemoglobin 13.6 g/dL (12.0-15.0); Lymphocyte # 1.27 X10^3/ul (0.83-4.51); Lymphocyte % 13.8 % (19-41); Mean Corp Hgb Conc 33.8 g/dL (32-36); Mean Corpuscular Hgb 29.6 pg (27.0-32.0); Mean Corpuscular Volume 87.4 fL (81-99); Mean Platelet Vol. 11.3 fl (6.2-12.0); Monocyte# 0.24 X10^3/uL; Monocyte% 2.6 % (0-10); NRBC Flagged by Analyzer 0 % (0-5); Neutrophil # 7.64 X10^3/uL (2.7-7.7); Platelet Count 295 K/mm3 (150-450); RBC Distribution Width CV 13.8 % (11.6-14.6); White Blood Count 9.2 K/mm3 (4.4-11.0)
[2025-04-04 16:11] LABS: CRP 3.13 mg/L (0.0-3.0); Free T3 2.7 pg/mL (2.18-3.98)
[2025-04-08 15:09] LABS: Thyroglobulin Antibody 1.1 IU/mL (0.0-0.9); Thyroid Peroxidase AB 10 IU/mL (0-34)
== END | disposition home or self-care (01) ==
PROVIDERS: PCP Family Medicine; Visit Provider Family Medicine
DX: E06.9 Thyroiditis, unspecified (principal)
CPT/HCPCS: 36415; 84439; 84443; 84481; 85025; 86140; 86376; 86800

== ENCOUNTER → 2025-04-16 | Outpatient (CLI) | payer OTHER, SELFPAY ==
--- NOTE | 2025-04-16 13:37 | US_ITS ---
PROCEDURE: THYROID 04/16/2025 REASON FOR EXAM: SWELLING ANTERIOR NECK TECHNIQUE: THYROID COMPARISON: None FINDINGS: Right thyroid lobe size: 4.7 x 1.3 x 1.4 cm Left thyroid lobe size: 5.0 x 1.5 x 1.6 cm Isthmus: 0.3 cm Background parenchymal echotexture is homogeneous. Nodules: None US/Thyroid IMPRESSION: Unremarkable thyroid ultrasound, without suspicious nodularity. Reading Location: [id number]
== END | disposition home or self-care (01) ==
LOC: US 13:34
PROVIDERS: PCP Family Medicine; Referring Provider Family Medicine; Visit Provider Family Medicine
DX: E06.0 Acute thyroiditis (principal)
CPT/HCPCS: 76536

== ENCOUNTER → 2025-07-22 | Outpatient (CLI) | payer OTHER, SELFPAY ==
[2025-07-22 13:04] LABS: HIV Nonreactive (Nonreactive); Syphilis Antibodies Nonreactive (Nonreactive)
[2025-07-23 20:08] LABS: Chlamydia By Nucleic Acid AMP Negative (Negative); Gonococcus By Nucleic Acid AMP Negative (Negative); HCV Quant. RNA PCR HCV Not Detected IU/mL (.)
== END | disposition home or self-care (01) ==
PROVIDERS: PCP Family Medicine; Referring Provider Nurse Practitioner Women's Health; Visit Provider Nurse Practitioner Women's Health
DX: Z11.3 Encounter for screening for infections with a predominantly sexual mode of transmission (principal); Z20.2 Contact with and (suspected) exposure to infections with a predominantly sexual mode of transmission; N89.8 Other specified noninflammatory disorders of vagina
CPT/HCPCS: 36415; 86695; 86696; 86703; 86780; 87491; 87522; 87591

== ENCOUNTER → 2025-09-18 | Outpatient (CLI) | payer OTHER, SELFPAY ==
[2025-09-20 20:08] LABS: Chlamydia By Nucleic Acid AMP Negative (Negative); Gonococcus By Nucleic Acid AMP Negative (Negative)
== END | disposition home or self-care (01) ==
LOC: LABSPEC 16:22
PROVIDERS: PCP Family Medicine; Visit Provider Nurse Practitioner Women's Health
DX: N89.8 Other specified noninflammatory disorders of vagina (principal); Z11.3 Encounter for screening for infections with a predominantly sexual mode of transmission
CPT/HCPCS: 87070; 87205; 87491; 87591